=== PATIENT | female | born 1965 | race Caucasian/White ===

== ENCOUNTER 2021-07-22 15:36 | Inpatient (IN) ==
[2021-07-22] MEDS ORDERED: SODIUM CHLORIDE 0.9% 250 ML IV PRN ×2 (16:23→17:15)
--- NOTE | 2021-07-22 16:54 | XRay Report ---
SINGLE VIEW CHEST CLINICAL HISTORY: Dyspnea. FINDINGS: An AP, portable, upright chest radiograph is obtained. No prior studies are available for c omparison at the time of dictation. A hiatal hernia is noted. The cardiomediastinal silhouette is unr emarkable. Mild atelectasis is noted at the lung bases. The lungs and pleural spaces are otherwise cl ear. No pneumothorax is seen. The bony thorax is grossly intact. IMPRESSION: 1. No active disease in the chest. 2. Hiatal hernia. ACT 112: Negative or not required by law. Electronically signed by: Giorgi Peoples M.D. 07/22/2021 4:52 PM
[2021-07-22 17:13] LABS: Hematocrit (blood only) 26.1 % (37-47); Hemoglobin 6.4 g/dL (12.0-16.0); Mean Corpuscular Hemoglobin 15.5 pg (25-34); Mean Corpuscular Hgb Conc 24.5 g/dL (32-36); Mean Corpuscular Volume 63.2 fL (80-100); Mean Platelet Volume 8.6 fL (7.4-10.4); Platelet Count 750 K/uL (130-400); RDW Coefficient of Variation 19.6 % (11.5-14.5); RDW Standard Deviation 45.5 fL (36.4-46.3); Red Blood Count 4.13 M/uL (4.2-5.4); White Blood Count 14.71 K/uL (4.8-10.8)
[2021-07-22 17:15] LABS: Basophils # (auto) 0.04 K/uL (0-0.2); Basophils % (auto) 0.3 %; Eosinophils # (auto) 0.37 K/uL (0-0.5); Eosinophils % (auto) 2.5 %; Hypochromasia Present; Immature Granulocytes # (auto) 0.06 K/uL (0.00-0.02); Immature Granulocytes % (auto) 0.4 %; Lymphocytes # (auto) 2.53 K/uL (1.2-3.4); Lymphocytes % (auto) 17.2 %; Microcytosis Present; Monocytes # (auto) 1.08 K/uL (0.11-0.59); Monocytes % (auto) 7.3 %; Neutrophils # (auto) 10.63 K/uL (1.4-6.5); Neutrophils % (auto) 72.3 %; Polychromasia 1+
[2021-07-22] MEDS ORDERED: OPTIRAY 320 100ml IV ONE (18:20)
--- NOTE | 2021-07-22 18:38 | CT Scan Report ---
CT abd pelvis IV con only CLINICAL HISTORY: anemia, elevated WBC TECHNIQUE: Helical axial images of the abdomen and pelvis were obtained and displayed. Automated dose lowering techniques and/or adjustment according to patient size were utilized for this exam. This e xam was performed with intravenous contrast. COMPARISON: None available at the time of this dictation. FINDINGS: Lower chest: No acute abnormality Liver: Unremarkable. No focal lesions are seen. Gallbladder and biliary tree: No calcified gallstones. Normal caliber wall. No intra- or extrahepatic biliary ductal dilation. Pancreas: Unremarkable, no focal lesions. Spleen: Splenule is incidentally noted. Adrenals: Unremarkable. Kidneys and ureters: Unremarkable. Bladder: Unremarkable. Reproductive organs: Unremarkable. Bowel: A hiatal hernia is seen. The appendix is normal. Lymph nodes Retroperitoneal: Unremarkable. Mesenteric: Unremarkable. Pelvic: Unremarkable. Peritoneum: Normal Vessels: Unremarkable. Abdominal wall: Unremarkable. Bones: Degenerative changes in the visualized spine. IMPRESSION: No acute abnormalities. ACT 112: Negative or not required by law. Electronically signed by: Lavelle Christianson M.D. 07/22/2021 6:36 PM
--- NOTE | 2021-07-22 19:40 | History & Physical Report ---
Date of Service July 22, 2021 Assessment & Plan (1) Anemia: Plan: Severe symptomatic microcytic anemia, no acute/observed blood loss No signs of active bleeding, postmenopausal, no GI bleeding with negative occult blood in ER. No family history of colorectal cancer, although has not had colorectal cancer screening. No family history of bleeding/clotting diathesis, leukemia. Her presentation with no clear bleeding but sudden profound anemia with thrombocytosis and leukocytosis and no signs of infection is potentially concerning for bone marrow origin, her work with [employer] also has risk for heavy metal fume exposure. Colorectal cancer would be common, however less likely due to lack of family history and negative occult blood screening although would still pursue work-up for this. Leukocytosis to 14.71 Last hemoglobin baseline 11.9 06/20/2019 Hemoglobin on admission 6.0, 1 unit for transfusion completed in ER. 2 additional units for transfusion pending completion, H&H pending for 30 minutes after completion Repeat hemoglobin 6.4 after 1 unit MCV severely microcytic, 63 Platelet count 750 No transaminitis, alk phos 141 Covid negative -CXR: No active disease in the chest. Hiatal hernia. - CT-Ab: No acute abnormalities. EKG: Normal sinus rhythm, no territorial ST changes, no T wave inversions - Iron studies pending (Fe, Ferritin, Transferrin, TSAT) + B12/Folate Reticulocyte count pending TSH with reflex pending - Thromboytosis + leukocytosis without signs of infection, peripheral smear pending No known history of thalassemia, if above work-up negative can consider hemoglobin analysis No clear drug-induced or infectious etiology. No family history of G6PD deficiency, no clear ingestion of hemolytic trigger (fav beans/8- aminoquinolines/new meds) No nailbed/skin/eye findings or other evidence of copper/lead/zinc/arsenic toxicity. Lead level pending. Consider additional levels above unremarkable patient family known to Dr. Montalvo, consult placed (2) Anxiety: Plan: Anxiety - Lexapro 10mg daily (3) GERD (gastroesophageal reflux disease): Plan: GERD - Omeprazole 20mg SOLUTION COORDINATOR converted to protonix 40mg daily Plan: DVT PPx: SCDs, defer pharmacoppx in the setting of acute anemia Diet: Regular Disposition: Med Tele CODE STATUS: Full Code History of Present Illness Chief Complaint: Symptomatic Anemia Primary Care Provider: DO Meryl Stevensonara Eldridge is a 55-year-old female with a past medical history of anxiety and GERD who presents with fatigue and dyspnea on exertion, and who was found to be severely anemic on routine outpt blodo work. Was at her PCP this mronign for a routine checkup. Had had some increased fatigue and hadn't had labs in a while so had routine work including a CBC and was found to be anemic. Was directed to go to the ER when CBC showed severe anemia. No signs of GIB. FOB negative. Meryl reports she had noticed she has been more fatigued in general and 'a little winded' over the last few months whic has been gradually worsening. No syncope/presyncope. No chest pain, no chest pressure. No recent illness. No fevers, chills, cough, nausea, vomiting, diarrhea, or constipation. No recent sick contacts. Her went to the [employer] and had a cold, but Meryl has overall felt well with no sx. was negative for COVID. Menopausal. Last period many years ago. No night sweats, chills. Sometimes warm and hot after showers and needs air/fan, otherwise no feverish fe eling. No bony pain, muscle aches, etc. Up to date on mammograms, normal to date. Work: [employer] for [employer]. Uses flux at work no problems with fumes. Diet: Balanced, eats chicken and some red hamburger meat. Gets regular iron in the diet. Drinks almond milk with her cereal, no other mild use. FHX: No fx of anemia. No bleeding diathesis/clotting problems. PGM with 'heart issues, in 50s'. Father's sisters had breast cancer, unsure o BRCA status. No fhx of colorectal cancer, no hx of colorectal cancer screening. Medical History: Reviewed Medications: Reviewed Surgical History: Reviewed Allergies: Reviewed Social History: No tobacco use, no etoh, no recreational drug use, no medical marijuana. Code Status: Full Code Allergies Allergy/AdvReac Type Severity Reaction Status Date / Time No Known Allergies Allergy Verified 07/22/21 07:56 Home Medications Medication Instructions Recorded Confirmed Type omeprazole magnesium 20 mg 20 mg PO DAILY 05/29/19 07/22/21 History tablet,delayed release escitalopram oxalate 10 mg tablet 10 mg PO DAILY #90 tab 04/28/21 07/22/21 Rx Past Med/Surg History Medical History Anxiety GERD (gastroesophageal reflux disease) Surgical History Status post section Status post tubal ligation Family History Mother Hypertension Father Hypertension Dementia Aunt Breast cancer Paternal Aunt Grandmother (Paternal) Myocardial infarction Coronary heart disease Denies family history of Ovarian cancer Prostate cancer Colorectal cancer Social History Smoking Status: Never smoker Second Hand Exposure: No; Hx Alcohol Use: No Hx Substance Use: No Preferred Language: Lao Communication Ability: Effective Visual Impairment: No Limitations Hearing Ability: Normal Beliefs That Will Affect Care: None marital status: Current Living Situation: Spouse current occupational status: employed 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 NAD. Cooperative. HEENT: Atraumatic, normocephalic. Pallor is present. Visual acuity intact, hearing intact. Extraocular movements intact without nystagmus. Pupils equal and reactive to light. Pulm: CTAB A&P. -wheezes, -rales, -rhonchi. Symmetrical chest rise. No increase work of breathing. No respiratory distress. Cardiac: RRR, -mrg. Radial pulses intact and symmetrical. Abdominal: Nontender, nondistended, soft. BS present. Extremities: Warm, dry. Video Producer strength, ankle dorsiflexion/plantar flexion, hip flexion 5/5 and symmetrical. PT pulse and radial pulses intact and symmetrical. Results & Data Results & Data ([facility]) Vital Signs (Past 12 Hours) Vital Signs Temp Pulse Pulse Resp BP BP Pulse Ox 07/22/21 18:00 79 18 152/98 H 100 07/22/21 17:04 98 07/22/21 16:48 93 H 17 135/79 98 07/22/21 16:15 36.4 C L 86 20 146/80 H 100 PG Care Time/CCT Total # of Minutes Spent Total Time Spent with Patient: Total time spent is greater than 50% in coordination of care (as documented) at patient's floor/unit and/or counseling patient: Coding Level of Care Code 11443 Initial Inpt Care Lvl 3 Diagnoses Anxiety F41.9 GERD (gastroesophageal reflux disease) K21.9 Anemia D64.9
--- NOTE | 2021-07-23 00:48 | Emergency Department Note ---
Impression & Plan Anemia, Transfusion of blood during current hospitalisation ED Provider Note CHIEF COMPLAINT: OCAMPO, fatigue, abnl blood work HISTORY OF PRESENT ILLNESS: This 55-year-old female with complaints of dyspnea on exertion patient presents to the emergency department, fatigue and abnormal blood work. Patient states she was at her annual physical exam with Dr. Henley today. She was notified this evening that her blood work was very abnormal with a low red blood cell count. Patient states she wakes up very early to go to work and felt as though her exhaustion by the end of her workday was related to her sleep schedule. She states she also "huffs and puffs" which she has lately been contributing to weight gain. Patient denies any pain in the abdomen, blood in her stools, fevers, vomiting or dysuria/hematuria. REVIEW OF SYSTEMS: A review of systems was performed with positives and pe rtinent negatives listed in the history of present illness. 10 systems were reviewed and are otherwise negative. ALLERGIES: see below MEDICATIONS: see below PMH: see below SOCIAL HISTORY: see below DDx: Infection, dehydration, metabolic abnormality, hypo/hyperglycemia, electrolyte disturbance, anemia, hypoxia, cardiac sources, intracerebral event, toxicologic, neurologic, as well as other pathologies. PHYSICAL EXAM: Vital signs reviewed. General: Well-appearing 55 yo female, in no significant distress. HEENT: No scleral icterus, PERRLA, neck supple. Atraumatic. Cardiovascular: Regular rate and rhythm, no extra sounds. Pulmonary: Clear to auscultation bilaterally, normal work of breathing. Abdomen: Soft, obese, nontender, nondistended, positive bowel sounds. Musculoskeletal: Atraumatic, no peripheral edema. Neurologic: Patient awake alert and oriented x 3 Rectal: Guaiac negative brown stool. Normal external rectal mucosa. Skin: Warm, dry, no rash EMERGENCY DEPARTMENT COURSE/MDM: This patient was evaluated and appeared to be in no significant distress. IV access was obtained and laboratory work was drawn. Patient was hydrated with normal saline solution. Laboratory work from earlier in the day was repeated and the hemoglobin of 6 persists. Patient was typed and crossed for 2 units of PRBCs. She was consented for blood transfusion. Stool is guaiac negative on exam. She remained stable however the etiology of her anemia is unclear she does not admit to any history of blood loss. CT imaging of the abdomen pelvis was performed due to an elevated WBC which is new from earlier today. The study is negative for acute pathology. Patient is currently receiving PRBCs and was discussed with the hospitalist service who will evaluate the patient for admission and further management. MONITORING: An order for cardiac monitoring was placed and the patient is noted to be in a NSR at 78 beats per minute. RADIOLOGY: see below EKG: NSR at 86 bpm, nonspecific ST segments lateral leads. No PVC, no PAC, normal QT interval, normal axis. I have personally spent 45 minutes of critical care time in the direct management of this patient. This was a life threatening event. This 45 minutes is in excess of all separately billable procedures. DISPOSITION: admit Past Med/Surg History Medical History (Updated 07/23/21 @ 00:48 by Zeinab Gallegos MD) Anxiety GERD (gastroesophageal reflux disease) Surgical History Status post section Status post tubal ligation Family History Mother Hypertension Father Hypertension Dementia Aunt Breast cancer Paternal Aunt Grandmother (Paternal) Myocardial infarction Coronary heart disease Denies family history of Ovarian cancer Prostate cancer Colorectal cancer Social History Smoking Status: Never smoker Second Hand Exposure: No; Hx Alcohol Use: Yes Alcohol type: wine Hx Substance Use: No Preferred Language: Comoran Communication Ability: Effective Visual Impairment: No Limitations Hearing Ability: Normal Administrative Support Assistant Required: No Beliefs That Will Affect Care: None marital status: Current Living Situation: Spouse current occupational status: employed 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[employer] Other Information That Helps Us Care for You: No Feels Safe at Home: Yes Safety Concerns: Feels Safe At This Time Childhood Exposure to Second-Hand Smoke: No caffeine: Yes (Coffee x 1-2 per day Tea 1-2 per day.) during the past year weight has: remained stable Dental Care, Regularly: No Physical Activity Frequency: Does not Exercise Seatbelt Use: always Sunscreen Use: Yes Assistive Devices: Denture - Upper and Glasses Assistive Devices Comment: partial upper dentures Allergies Allergies Allergy/AdvReac Type Severity Reaction Status Date / Time No Known Allergies Allergy Verified 07/22/21 07:56 Home Meds Home Medications Medication Instructions Recorded Confirmed omeprazole magnesium 20 mg 20 mg PO DAILY 05/29/19 07/22/21 tablet,delayed release Previous Rx's Medication Instructions Recorded escitalopram oxalate 10 mg tablet 10 mg PO DAILY #90 tab 04/28/21 Results & Data (ED) Vital Signs Vital Signs - 24 hr 07/22/21 16:15 07/22/21 16:48 07/22/21 17:00 Temperature 36.4 C L Temperature Source Temporal Artery Scan Pulse Rate 86 86 77 Pulse Rate [Apical] 93 H Pulse Rate from SpO2 Sensor 87 Pulse Rhythm Pulse Rhythm [Apical] Pulse Strength Pulse Strength [Apical] Respiratory Rate 20 13 15 Respiratory Effort / Characteristics Non-Labored Spontaneous Respiratory Depth Normal Respiratory Pattern Regular Blood Pressure 146/80 H Blood Pressure [Right Arm] 135/79 Blood Pressure Mean 102 Blood Pressure Mean [Right Arm] 97 Blood Pressure Position Sitting Blood Pressure Position [Right Arm] Semi-fowlers Pulse Oximetry 100 98 Oxygen Delivery Method Room Air Room Air Oxygen Flow Rate Sepsis Recent Fever Within 48 Hours No Sepsis New/Unexplained Change in Mental Status No Sepsis Action Taken by Nursing No Action Required 07/22/21 17:04 07/22/21 17:15 07/22/21 17:30 Temperature Temperature Source Pulse Rate 78 83 Pulse Rate [Apical] Pulse Rate from SpO2 Sensor 79 81 Pulse Rhythm Pulse Rhythm [Apical] Pulse Strength Pulse Strength [Apical] Respiratory Rate 17 20 Respiratory Effort / Characteristics Respiratory Depth Respiratory Pattern Blood Pressure Blood Pressure [Right Arm] Blood Pressure Mean Blood Pressure Mean [Right Arm] Blood Pressure Position Blood Pressure Position [Right Arm] Pulse Oximetry 98 99 100 Oxygen Delivery Method Room Air Oxygen Flow Rate 0 Sepsis Recent Fever Within 48 Hours Sepsis New/Unexplained Change in Mental Status Sepsis Action Taken by Nursing 07/22/21 17:45 07/22/21 18:00 07/22/21 18:32 Temperature Temperature Source Pulse Rate 77 81 89 Pulse Rate [Apical] 79 Pulse Rate from SpO2 Sensor 79 81 88 Pulse Rhythm Pulse Rhythm [Apical] Regular Pulse Strength Pulse Strength [Apical] Normal Respiratory Rate 18 16 23 Respiratory Effort / Characteristics Non-Labored Spontaneous Respiratory Depth Normal Respiratory Pattern Blood Pressure 143/90 H Blood Pressure [Right Arm] 152/98 H Blood Pressure Mean 107 Blood Pressure Mean [Right Arm] 116 Blood Pressure Position Blood Pressure Position [Right Arm] Semi-fowlers Pulse Oximetry 100 100 99 Oxygen Delivery Method Room Air Oxygen Flow Rate Sepsis Recent Fever Within 48 Hours Sepsis New/Unexplained Change in Mental Status Sepsis Action Taken by Nursing 07/22/21 18:45 07/22/21 19:00 07/22/21 19:15 Temperature Temperature Source Pulse Rate 88 83 82 Pulse Rate [Apical] Pulse Rate from SpO2 Sensor 89 82 82 Pulse Rhythm Pulse Rhythm [Apical] Pulse Strength Pulse Strength [Apical] Respiratory Rate 28 H 24 17 Respiratory Effort / Characteristics Respiratory Depth Respiratory Pattern Blood Pressure 145/85 H Blood Pressure [Right Arm] Blood Pressure Mean 105 Blood Pressure Mean [Right Arm] Blood Pressure Position Blood Pressure Position [Right Arm] Pulse Oximetry 98 99 100 Oxygen Delivery Method Oxygen Flow Rate Sepsis Recent Fever Within 48 Hours Sepsis New/Unexplained Change in Mental Status Sepsis Action Taken by Nursing 07/22/21 19:30 07/22/21 19:45 07/22/21 20:00 Temperature Temperature Source Pulse Rate 86 85 93 H Pulse Rate [Apical] Pulse Rate from SpO2 Sensor 83 85 93 H Pulse Rhythm Pulse Rhythm [Apical] Pulse Strength Pulse Strength [Apical] Respiratory Rate 17 23 17 Respiratory Effort / Characteristics Respiratory Depth Respiratory Pattern Blood Pressure Blood Pressure [Right Arm] Blood Pressure Mean Blood Pressure Mean [Right Arm] Blood Pressure Position Blood Pressure Position [Right Arm] Pulse Oximetry 100 100 99 Oxygen Delivery Method Oxygen Flow Rate Sepsis Recent Fever Within 48 Hours Sepsis New/Unexplained Change in Mental Status Sepsis Action Taken by Nursing 07/22/21 20:07 07/22/21 20:10 07/22/21 20:15 Temperature Temperature Source Pulse Rate 87 93 H Pulse Rate [Apical] 90 Pulse Rate from SpO2 Sensor 91 H Pulse Rhythm Regular Pulse Rhythm [Apical] Regular Pulse Strength Normal Pulse Strength [Apical] Normal Respiratory Rate 18 18 21 Respiratory Effort / Characteristics Non-Labored Spontaneous Respiratory Depth Normal Respiratory Pattern Regular Blood Pressure 146/90 H Blood Pressure [Right Arm] 146/90 H Blood Pressure Mean 108 Blood Pressure Mean [Right Arm] 108 Blood Pressure Position Semi-fowlers Blood Pressure Position [Right Arm] Semi-fowlers Pulse Oximetry 100 98 99 Oxygen Delivery Method Room Air Oxygen Flow Rate Sepsis Recent Fever Within 48 Hours Sepsis New/Unexplained Change in Mental Status Sepsis Action Taken by [facility] Medications Current Medication List: was personally reviewed by me Laboratory Data Attestation: I reviewed the patient's lab results. Result diagrams: 07/22/21 16:43 Lab Results 07/22/21 07/22/21 07/22/21 Range/Units 16:43 16:43 16:45 WBC 14.71 H (4.8-10.8) K/uL RBC 4.13 L (4.2-5.4) M/uL Hgb 6.4 L* (12.0-16.0) g/dL Hct 26.1 L (37-47) % MCV 63.2 L (80-100) fL MCH 15.5 L (25-34) pg MCHC 24.5 L (32-36) g/dL RDW Std Deviation 45.5 (36.4-46.3) fL RDW Coeff of Yane 19.6 H (11.5-14.5) % Plt Count 750 H (130-400) K/uL MPV 8.6 (7.4-10.4) fL Immature Gran % (Auto) 0.4 % Neut % (Auto) 72.3 % Lymph % (Auto) 17.2 % Mckean % (Auto) 7.3 % Eos % (Auto) 2.5 % Baso % (Auto) 0.3 % Neut # (Auto) 10.63 H (1.4-6.5) K/uL Lymph # (Auto) 2.53 (1.2-3.4) K/uL Mckean # (Auto) 1.08 H (0.11-0.59) K/uL Eos # (Auto) 0.37 (0-0.5) K/uL Baso # (Auto) 0.04 (0-0.2) K/uL Immature Gran # (Auto) 0.06 H (0.00-0.02) K/uL Polychromasia 1+ Hypochromasia Present Microcytosis Present COVID-19 Eval Order Covid19 at [facility] SARS-CoV-2 (PCR) (Negative) Blood Type O Positive Blood Type Recheck Antibody Screen NEGATIVE Crossmatch See Detail 07/22/21 07/22/21 Range/Units 16:45 18:38 WBC (4.8-10.8) K/uL RBC (4.2-5.4) M/uL Hgb (12.0-16.0) g/dL Hct (37-47) % MCV (80-100) fL MCH (25-34) pg MCHC (32-36) g/dL RDW Std Deviation (36.4-46.3) fL RDW Coeff of Yane (11.5-14.5) % Plt Count (130-400) K/uL MPV (7.4-10.4) fL Immature Gran % (Auto) % Neut % (Auto) % Lymph % (Auto) % Mckean % (Auto) % Eos % (Auto) % Baso % (Auto) % Neut # (Auto) (1.4-6.5) K/uL Lymph # (Auto) (1.2-3.4) K/uL Mckean # (Auto) (0.11-0.59) K/uL Eos # (Auto) (0-0.5) K/uL Baso # (Auto) (0-0.2) K/uL Immature Gran # (Auto) (0.00-0.02) K/uL Polychromasia Hypochromasia Microcytosis COVID-19 Eval Order SARS-CoV-2 (PCR) NEGATIVE (Negative) Blood Type Blood Type Recheck O Positive Antibody Screen Crossmatch Administered Medications Discontinued Medications Ioversol (Optiray 320 100ml) 94 ml IV ONCE ONE Stop: 07/22/21 18:21 Last Admin: 07/22/21 18:20 Dose: 94 ml Documented by: [id number] Imaging Data Radiologist's Impression: Chest X-Ray 07/22/21 16:23 SINGLE VIEW CHEST CLINICAL HISTORY: Dyspnea. FINDINGS: An AP, portable, upright chest radiograph is obtained. No prior studies are available for comparison at the time of dictation. A hiatal hernia is noted. The cardiomediastinal silhouette is unremarkable. Mild atelectasis is noted at the lung bases. The lungs and pleural spaces are otherwise clear. No pneumothorax is seen. The bony thorax is grossly intact. IMPRESSION: 1. No active disease in the chest. 2. Hiatal hernia. ACT 112: Negative or not required by law. Electronically signed by: Giorgi Peoples M.D. 07/22/2021 4:52 PM Abdomen/Pelvis CT 07/22/21 17:36 CT abd pelvis IV con only CLINICAL HISTORY: anemia, elevated WBC TECHNIQUE: Helical axial images of the abdomen and pelvis were obtained and displayed. Automated dose lowering techniques and/or adjustment according to patient size were utilized for this exam. This exam was performed with intravenous contrast. COMPARISON: None available at the time of this dictation. FINDINGS: Lower chest: No acute abnormality Liver: Unremarkable. No focal lesions are seen. Gallbladder and biliary tree: No calcified gallstones. Normal caliber wall. No intra- or extrahepatic biliary ductal dilation. Pancreas: Unremarkable, no focal lesions. Spleen: Splenule is incidentally noted. Adrenals: Unremarkable. Kidneys and ureters: Unremarkable. Bladder: Unremarkable. Reproductive organs: Unremarkable. Bowel: A hiatal hernia is seen. The appendix is normal. Lymph nodes Retroperitoneal: Unremarkable. Mesenteric: Unremarkable. Pelvic: Unremarkable. Peritoneum: Normal Vessels: Unremarkable. Abdominal wall: Unremarkable. Bones: Degenerative changes in the visualized spine. IMPRESSION: No acute abnormalities. ACT 112: Negative or not required by law. Electronically signed by: Lavelle Christianson M.D. 07/22/2021 6:36 PM Blood Pressure Blood Pressure Findings: Normal blood pressure Blood Pressure Disposition: did not require urgent referral Discharge Plan Visit Data Chief Complaint: Shortness of Breath/Dyspnea Stated Complaint: AB-NORMAL LAB HEMOGLOBIN 6, FATIGUE, SOB ED Provider: Zeinab Gallegos Discharge Problem: Anemia, Transfusion of blood during current hospitalisation Patient Disposition: Admitted As Inpatient Discharge Instructions Interventions: ED Discharge Assessment Last Done: 07/22/21 21:42
[2021-07-23 05:48] LABS: Hematocrit (blood only) 31.7 % (37-47); Hemoglobin 9.1 g/dL (12.0-16.0); Mean Corpuscular Hgb Conc 28.7 g/dL (32-36); Mean Corpuscular Volume 69.7 fL (80-100); Mean Platelet Volume 8.4 fL (7.4-10.4); Nucleated RBC # (auto) 0.03 K/uL (0-0); Nucleated RBC % (auto) 0.3 %; Platelet Count 531 K/uL (130-400); RDW Coefficient of Variation 24.2 % (11.5-14.5); Red Blood Count 4.55 M/uL (4.2-5.4)
[2021-07-23 06:12] LABS: BUN Creatinine Ratio 9.1 (10-20); Calcium 8.2 mg/dl (8.5-10.1); Creatinine Clr Calc Pharmacy 92.9 ml/min; Est GFR (African American) 107.7 ml/min; Potassium 4.1 mmol/L (3.5-5.1)
[2021-07-23 06:21] LABS: Albumin Globulin Ratio 0.7 (0.9-2); Bilirubin,Total 0.5 mg/dl (0.2-1); Ferritin 1.7 ng/ml (8-388); Globulin 4.4 gm/dl (2.5-4.0); Thyroid Stimulating Hormone 1.15 uIu/ml (0.300-4.500); Total Protein 7.4 gm/dl (6.4-8.2)
[2021-07-23 06:40] LABS: Basophils # (auto) 0.03 K/uL (0-0.2); Basophils % (auto) 0.3 %; Eosinophils # (auto) 0.26 K/uL (0-0.5); Eosinophils % (auto) 2.5 %; Hypochromasia Present; Immature Granulocytes # (auto) 0.03 K/uL (0.00-0.02); Immature Granulocytes % (auto) 0.3 %; Lymphocytes # (auto) 1.86 K/uL (1.2-3.4); Lymphocytes % (auto) 18.2 %; Monocytes # (auto) 0.87 K/uL (0.11-0.59); Monocytes % (auto) 8.5 %; Neutrophils # (auto) 7.15 K/uL (1.4-6.5); Neutrophils % (auto) 70.2 %; Polychromasia 1+; Reticulocyte % 1.2 % (0.5-2.0); Reticulocytes # 0.05 10^6/uL (0.02-0.10)
[2021-07-23 07:10] LABS: Folate (Folic Acid) 9.1 ng/ml (>5.38)
[2021-07-23 07:45] VITALS: BP 133/84; TEMP 98.6; O2SAT 97
[2021-07-23] MEDS ORDERED: PANTOprazole 40 MG TAB PO SCH (09:00)
[2021-07-23] MEDS ORDERED: ESCITALOPRAM OXALATE 10 MG TAB PO SCH (09:00)
--- NOTE | 2021-07-23 11:12 | Electrocardiogram Report ---
Test Reason : Blood Pressure : / mmHG Vent. Rate : 086 BPM Atrial Rate : 086 BPM P-R Int : 154 ms QRS Dur : 086 ms QT Int : 384 ms P-R-T Axes : 039 025 018 degrees QTc Int : 459 ms Poor data quality, interpretation may be adversely affected Normal sinus rhythm Nonspecific ST abnormality Abnormal ECG No previous ECGs available Confirmed by Isai Collins ([id number]) on 07/23/2021 11:12:29 AM Referred By: Lisa Henley Confirmed By:Partha Collins
[2021-07-23] MEDS ORDERED: IRON SUCROSE 200 MG in 0.9 % SODIUM CHLORIDE 100 ML IV ONE (12:45)
--- NOTE | 2021-07-23 14:56 | Discharge Summary ---
Date of Service July 23, 2021 Admission HPI Per Admitting Provider Karen Chavez is a 55-year-old female with a past medical history of anxiety and GERD who presents with fatigue and dyspnea on exertion, and who was found to be severely anemic on routine outpt blodo work. Was at her PCP this mronign for a routine checkup. Had had some increased fatigue and hadn't had labs in a while so had routine work including a CBC and was found to be anemic. Was directed to go to the ER when CBC showed severe anemia. No signs of GIB. FOB negative. Meryl reports she had noticed she has been more fatigued in general and 'a little winded' over the last few months whic has been gradually worsening. No syncope/presyncope. No chest pain, no chest pressure. No recent illness. No fevers, chills, cough, nausea, vomiting, diarrhea, or constipation. No recent sick contacts. Her went to the [employer] and had a cold, but Meryl has overall felt well with no sx. was negative for COVID. Menopausal. Last period many years ago. No night sweats, chills. Sometimes warm and hot after showers and needs air/fan, otherwise no feverish feeling. No bony pain, muscle aches, etc. Up to date on mammograms, normal to date. Work: [employer] under a [employer] for [employer] Uses flux at work no problems with fumes. Diet: Balanced, eats chicken and some red hamburger meat. Gets regular iron in the diet. Drinks almond milk with her cereal, no other mild use. FHX: No fx of anemia. No bleeding diathesis/clotting problems. PGM with 'heart issues, in 50s'. Father's sisters had breast cancer, unsure o BRCA status. No fhx of colorectal cancer, no hx of colorectal cancer screening. Medical History: Reviewed Medications: Reviewed Surgical History: Reviewed Allergies: Reviewed Social History: No tobacco use, no etoh, no recreational drug use, no medical marijuana. Code Status: Full Code Principal Diagnosis Microcytic, hypochromic anemia Severe iron deficiency Discharge Exam General: well developed, well nourished, no acute distress, comfortable Neck: supple, trachea midline, normal thyroid Lungs: clear to auscultation bilaterally, normal respiratory effort, no acc essory muscle use, no distress Heart: regular S1 and S2, no murmur, peripheral pulses normal, capillary refill normal, no edema Abdomen: soft, NT, ND, + BS, no hepatomegaly, normal to percussion Extremities: normal in appearance, no cyanosis, no petechiae, strength is 5/5 bilaterally Neuro: awake, cooperative, moves all extremities, no focal motor deficits, CN II-XII intact, sensation in extremities intact, normal speech Skin: warm, dry, no rash, normal turgor Psych: Awake, alert oriented x 3, euthymic affect Discharge Data Allergies Allergy/AdvReac Type Severity Reaction Status Date / Time No Known Allergies Allergy Verified 07/22/21 07:56 Consultations 07/22/21 18:57 ED Decision to Admit Stat Ordered Studies 07/22/21 17:36 CT abd pelvis IV con only Stat Hospital Course (1) Anemia: Severe symptomatic microcytic anemia, no acute/observed blood loss cells are hypochromic as well most obvious etiology is profound iron deficiency, ferritin is 1.7 and iron is 22 patient transfused 3 units of PRBC for Hemoglobin of 6.0, hemoglobin came up appropriate, >9.0 gave a dose of Venofer 200mg IV, tolerated well discussed with Dr. Colvin, she agreed with the plan to discharge to home and follow up in hematology clinic, cancelled inpatient consultation plan: will discharge to home since Hemoglobin is > 9 and BP stable set up for 4 more doses of Venofer 200mg IV in the MTU will follow up with Dr. Montalvo, hematology would recommend referral to GI for endoscopy work up to look for chronic blood loss place on Ferrous sulfate 325mg BID as well discussed with patient, she eats a well rounded diet, no restrictions, adequate iron intake is unlikely her issue (2) Anxiety: Anxiety - Lexapro 10mg daily (3) GERD (gastroesophageal reflux disease): GERD - Omeprazole 20mg CHIEF INVESTIGATOR converted to protonix 40mg daily (4) Iron deficiency: see above d/c to home Total Time Total Time Spent Total Time Spent (In Minutes): 36 minutes Total Time Includes: Examination of the Patient, Discharge Planning, Medication Reconciliation and Communication With Other Providers Discharge Plan Discharge Items Patient Disposition: Home - Self-Care Reason For Visit: SYMPTOMATIC ANEMIA Discharge Diagnosis: Microcytic anemia Severe iron deficiency Condition on Discharge: Good Goals: complete Venofer, 4 treatments needed follow up with Dr. Montalvo next week consider GI referral for endoscopy work up as cause of deficiency Activity: Resume your previous activity Driving/Machine Use: No limitations Weightbearing: Full weightbearing Non-emergency contact: Primary Care Provider Call non-emergency contact if: you have any medication questions Follow-up/Referrals: Lisa Henley DO [Primary Care Provider] - 08/09/21 9:20 am () Russel Montalvo DO [Physician] - (PLEASE CALL DR. MONTALVO'S OFFICE TO SCHEDULE A FOLLOW-UP DISCHARGE APPOINTMENT WITHIN 7-10 DAYS.) Diet: Regular Addtl Attending Provider Instructions: Medications: - FERROUS SULFATE: 325mg twice a day, can cause constipation, so be sure to stay well hydrated, take fiber supplement and/or stool softener if needed - VENOFER: intravenous iron supplement, will get 4 additional treatments this week Severe anemia, hemoglobin 6.0, most likely due to profound iron deficiency, ferritin level only 1.7 red blood cells very small and hypochromic consistent with iron deficiency doubt the deficiency is due to poor intake as you eat a well balanced diet best way to replete iron stores is 5 doses of Venofer will also have you take oral supplements please follow up with Dr. Montalvo this week, could be referred to gastroenterology for endoscopic work up to find a reason for low iron Pending Studies at Discharge: No Stand-Alone Forms: My [facility] [employer], Smoking Cessation Medications and DC Order Prescriptions: New ferrous sulfate 325 mg (65 mg iron) tablet 325 mg PO BID Qty: 60 RF: 3 Continued escitalopram oxalate 20 mg tablet 20 mg PO DAILY Qty: 90 RF: 1 omeprazole magnesium 20 mg tablet,delayed release (DR/EC) 20 mg PO DAILY RF: 0 Discharge Orders: Discharge Order (Routine); Ordered 07/23/21 Ordered By: Lavelle Mcdonnell Admission Data Admit Date/Time: 07/22/21 20:20 Attending Provider: Lavelle Mcdonnell Admit Provider: Isaiah Gonzalez Primary Care Provider: Lisa Henley Other Providers: Isaiah Gonzalez Other Interventions: Discharge Summary Assessment (RN) Last Done: 07/23/21 15:02 Coding Level of Care Code D/C DAY MANAGEMENT >30 MINS Diagnoses Anemia D64.9 Anemia type: unspecified type Anxiety F41.9 GERD (gastroesophageal reflux disease) K21.9 Iron deficiency E61.1
[2021-07-23 15:03] VITALS: PULSE 92
[2021-07-27 19:45] LABS: IgA Serum 340 mg/dL (47-310); Tis Trans IgA <1.0 U/mL
== END 2021-07-23 15:35 | disposition home or self-care (01) | DRG 812 ==
LOC: ED 15:36 → 2W 20:20 → SUATTDRO 20:20 → 2W 21:42

== ENCOUNTER 2021-11-11 17:49 | Inpatient (IN) ==
[2021-11-11 19:46] LABS: Basophils # (auto) 0.04 K/uL (0-0.2); Basophils % (auto) 0.4 %; Eosinophils % (auto) 2.9 %; Hematocrit (blood only) 30.3 % (37-47); Hemoglobin 9.4 g/dL (12.0-16.0); Immature Granulocytes # (auto) 0.04 K/uL (0.00-0.02); Immature Granulocytes % (auto) 0.4 %; Lymphocytes # (auto) 2.06 K/uL (1.2-3.4); Lymphocytes % (auto) 19.8 %; Mean Corpuscular Hemoglobin 27.7 pg (25-34); Mean Corpuscular Volume 89.4 fL (80-100); Mean Platelet Volume 8.8 fL (7.4-10.4); Monocytes # (auto) 0.82 K/uL (0.11-0.59); Monocytes % (auto) 7.9 %; Neutrophils # (auto) 7.16 K/uL (1.4-6.5); Neutrophils % (auto) 68.6 %; Platelet Count 424 K/uL (130-400); RDW Coefficient of Variation 13.5 % (11.5-14.5); Red Blood Count 3.39 M/uL (4.2-5.4); White Blood Count 10.42 K/uL (4.8-10.8)
[2021-11-11 20:03] LABS: Partial Thromboplastin Time 26.5 Seconds (21.0-31.0); Prothrombin Time 9.8 Seconds (9.0-12.0)
[2021-11-11 20:04] LABS: Albumin Globulin Ratio 1.2 (0.9-2); Albumin Level 3.6 gm/dl (3.4-5.0); BUN Creatinine Ratio 24.6 (10-20); Bilirubin,Total 0.2 mg/dl (0.2-1.0); Calcium 8.4 mg/dl (8.5-10.1); Creatinine Clr Calc Pharmacy 97.6 ml/min; Est GFR (Non-African American) 96.6 ml/min; Globulin 2.9 gm/dl (2.5-4.0); Potassium 4.2 mmol/L (3.5-5.1); Total Protein 6.5 gm/dl (6.0-8.3)
--- NOTE | 2021-11-11 20:49 | History & Physical Report ---
Date of Service November 11, 2021 Assessment & Plan (1) Hematochezia: Plan: -EGD and colonoscopy in July as part of an anemia work-up. EGD was normal. Colonoscopy showed localized inflammation, mild severity characterized by aphthous ulcerations and terminal ileum. Biopsies taken. 6 mm polyp in the cecum was removed. Nonbleeding internal hemorrhoids seen. Diverticulosis noted in sigmoid colon. A capsule endoscopy was going to be ordered for today, however cancelled due to patient being en route to the ED. -Tagged RBC scan yesterday was unrevealing. -Hgb 9.4 today in ED, down from 11.6 yesterday. -Will continue to trend H/H Q4 x3. -Type and screen obtained, will obtain consent. -Npo for now, LRs @ 80 cc/hr, on PPI. (2) Anemia: Plan: -As above. (3) Anxiety: Plan: -Continue escitalopram 20 mg PO daily. (4) GERD (gastroesophageal reflux disease): Plan: -Continue PPI. Plan: -SCDs ordered, holding Lovenox for acute bleed. -Obs status -Conditional code, does not want intubation. History of Present Illness Chief Complaint: rectal bleeding Primary Care Provider: Lisa Henley DO Patient is a 55-year-old female with past medical history of GERD, anxiety, and anemia who presents to ED with rectal bleeding since 4 PM today. States she is passing large quantities of dark red blood with some clots visualized. Is othereise asymptomatic, no fever/chills, chest pain, palpitations, shortness of rbeath, dizziness, weakness, syncope, abdominal pain, nausea, vomiting, hematuria, constipation, or diarrhea. Patient has had intermittent rectal bleeding for several months now with extensive evaluation, see below for details. Patient initially began work-up for iron deficiency anemia and June, when she was found to be severely anemic on routine outpatient blood work. She was admitted on 07/22 and received 3 units of PRBC for Hemoglobin of 6.0, hemoglobin came up appropriate, >9.0, gave a dose of Venofer 200mg IV, tolerated well. She was discharged the following day with set up for 4 more doses of Venofer 200mg IV and ferrous sulfate 325mg BID as well, with follow up with Dr. Montalvo, hematology. Patient recently had a tagged RBC scan yesterday which was unrevealing, as well as EGD and colonoscopy in July as part of an anemia work-up. EGD was normal. Colonoscopy showed localized inflammation, mild severity characterized by aphthous ulcerations and terminal ileum. Biopsies taken. 6 mm polyp in the cecum was removed. Nonbleeding internal hemorrhoids seen. Diverticulosis noted in sigmoid colon. A capsule endoscopy was going to be ordered for today, however cancelled due to patient being en route to the ED. Hgb 9.4 today, down from 11.6 from outpatient labs yesterday. Heme-occult positive. All other labs wnl. Type and screeb obtained, will obtain consent for transfusion and monitor H/H. Allergies Allergy/AdvReac Type Severity Reaction Status Date / Time No Known Allergies Allergy Verified 11/11/21 20:26 Home Medications Medication Instructions Recorded Confirmed Type omeprazole magnesium 20 mg 20 mg PO QA 05/29/19 11/11/21 History tablet,delayed release escitalopram oxalate 20 mg tablet 20 mg PO QAM 08/12/21 11/11/21 History Past Med/Surg History Medical History Anxiety GERD (gastroesophageal reflux disease) Iron deficiency anemia Surgical History Status post section Status post tubal ligation Family History Mother Hypertension Father Hypertension Dementia Aunt Breast cancer Paternal Aunt Grandmother (Paternal) Myocardial infarction Coronary heart disease Denies family history of Ovarian cancer Prostate cancer Colorectal cancer Social History Smoking Status: Never smoker Tobacco Type: Cigarettes Second Hand Exposure: No; Hx Alcohol Use: No Hx Substance Use: No Preferred Language: Mongolian Communication Ability: Effective Visual Impairment: No Limitations Hearing Ability: Normal Stone Polisher Machine Required: No Beliefs That Will Affect Care: None marital status: Current Living Situation: Spouse current occupational status: employed 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[employer] How many Children do You have: 1 Feels Safe at Home: Yes Safety Concerns: Feels Safe At This Time Childhood Exposure to Second-Hand Smoke: No caffeine: Yes (Coffee x 1-2 per day Tea 1-2 per day.) during the past year weight has: remained stable Dental Care, Regularly: No Physical Activity Frequency: Does not Exercise Seatbelt Use: always Sunscreen Use: Yes Assistive Devices: Glasses Review of Systems Review of Systems: Constitutional: No fever, sweats or chills Eyes: No diplopia, no worsening or blurred vision ENT: normal hearing, no trouble swallowing Respiratory: No cough, sputum, dyspnea at rest or on exertion Cardiovascular: No chest pain, tightness or palpitations Abdomen: Frequent rectal bleeding with and without BMs; No pain, nausea, vomiting, diarrhea or constipation Musculoskeletal: No joint pain, calf pain, swelling Neurologic: No weakness, numbness/tingling, or balance problems Psychiatric: No anxiety or depression Skin: No rash or itch Physical Exam Physical Exam: General: awake, alert, no apparent distress Head: Normocephalic, atraumatic ENT: PERRL, EOMI, no pharyngeal exudate, mucous membranes moist Chest: Clear to auscultation, on room air, no adventitious breath sounds Cardiac: Regular rate and rhythm, no murmur, no JVD, normal peripheral pulses, good capillary refill Abdominal: heme occult positive; NABS x 4 quadrants, soft, nontender to pa lpation, no rebound, guarding or tenderness Extremities: Normal inspection, no peripheral edema or erythema, calfs nontender to palpation Psych: Normal mood and affect Neuro: AAO x 3, strength intact bilaterally and rated 5/5, no motor deficits, speech is clear, no peripheral sensory deficits Skin: no rash or erythema Results & Data Results & Data ([facility]) Vital Signs (Past 12 Hours) Vital Signs Temp Pulse Resp BP Pulse Ox 11/11/21 19:40 85 20 157/99 H 95 11/11/21 18:01 36.7 C 96 H 18 132/76 97 Laboratory Results Abnormal lab results 11/11/21 11/11/21 11/11/21 Range/Units 19:35 19:35 20:50 RBC 3.39 L (4.2-5.4) M/uL Hgb 9.4 L (12.0-16.0) g/dL Hct 30.3 L (37-47) % MCHC 31.0 L (32-36) g/dL Plt Count 424 H (130-400) K/uL Neut # (Auto) 7.16 H (1.4-6.5) K/uL Terry # (Auto) 0.82 H (0.11-0.59) K/uL Immature Gran # (Auto) 0.04 H (0.00-0.02) K/uL Chloride 108 H (98-107) mmol/L BUN/Creatinine Ratio 24.6 H (10-20) Glucose 102 H (70-99(Fasting)) mg/dl Calcium 8.4 L (8.5-10.1) mg/dl AST 12 L (13-39) U/L POC Stool Occult Blood Positive A (Negative) Code Status & VTE Plan Code Status Conditional code, patient would like all life saving measures with the exception of intubation. VTE Prophylaxis Plan VTE Prophylaxis will be ordered: Yes Supervising Physician Co-Signing Physician Notes Attending addendum: I have physically seen this patient, have supervised the ANABELLA's activities, and agree with the H&P unless as otherwise noted. Assessment and Plan: Hematochezia- Negative EGD and colonoscopy 08/14 Negative tagged red cell scan yesterday Hemoglobin has dropped from 11.6-9.4 from yesterday to today H&H every 4 hours x3 Type and screen NPO except essential medications LR at 80 mils per hour Protonix 40 mg IV daily Consult gastroenterology Remaining orders and notations as noted PG Care Time/CCT Total # of Minutes Spent Total Time Spent with Patient: Total time spent is greater than 50% in coordination of care (as documented) at patient's floor/unit and/or counseling patient: Coding Level of Care Code INT OBSERVATION CARE 50M LVL 2 Diagnoses Hematochezia K92.1 Anemia D64.9 Anemia type: unspecified type Anxiety F41.9 GERD (gastroesophageal reflux disease) K21.9 (1) Anemia Anemia type: unspecified type Qualified Code(s): D64.9 - Anemia, unspecified
[2021-11-11] MEDS ORDERED: POLYETHYLENE (MIRALAX) 17 GM PACK PO PRN (22:33)
[2021-11-11] MEDS ORDERED: ONDANSETRON INJ 2 MG/ML 2 ML VIAL IV PRN (22:33)
[2021-11-11] MEDS: LACTATED RINGER'S 1,000 ML IV SCH (22:40)
[2021-11-11 23:32] LABS: Hematocrit (blood only) 27.2 % (37-47); Hemoglobin 8.6 g/dL (12.0-16.0)
--- NOTE | 2021-11-11 23:56 | Emergency Department Note ---
History of Present Illness General Chief complaint: Rectal Bleed Stated complaint: RECTAL BLEED Time Seen by Provider: 11/11/21 18:58 History of Present Illness 55-year-old female, history of iron deficiency anemia, and prior history of blood transfusions, who presents to the emergency department with complaint of ongoing rectal bleeding. The patient reports that she was evaluated in the emergency department yesterday for this condition. The patient follows with Dr. Montalvo, solar consultant/oncologist, who ordered and performed a nuclear bleeding scan yesterday that was normal. With persistent bleeding, the patient was instructed to return to the emergency department. She reports maroon-colored blood per r ectum. She also reports abdominal cramping. Patient does report some weakness. She denies nausea, chest pain, shortness of breath or notable decreased urine output. The patient denies any significant pain on my exam. Home Medications Medication Instructions Recorded Confirmed Type omeprazole magnesium 20 mg 20 mg PO QAM 05/29/19 11/11/21 History tablet,delayed release escitalopram oxalate 20 mg tablet 20 mg PO QAM 08/12/21 11/11/21 History Allergies Allergy/AdvReac Type Severity Reaction Status Date / Time No Known Allergies Allergy Verified 11/11/21 20:26 Past Med/Surg History Medical History Anxiety GERD (gastroesophageal reflux disease) Iron deficiency anemia Surgical History Status post section Status post tubal ligation Family History Mother Hypertension Father Hypertension Dementia Aunt Breast cancer Paternal Aunt Grandmother (Paternal) Myocardial infarction Coronary heart disease Denies family history of Ovarian cancer Prostate cancer Colorectal cancer Social History Smoking Status: Never smoker Tobacco Type: Cigarettes Second Hand Exposure: No; Hx Alcohol Use: No Hx Substance Use: No Preferred Language: Tunisian Communication Ability: Effective Visual Impairment: No Limitations Hearing Ability: Normal 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 Beliefs That Will Affect Care: None marital status: Current Living Situation: Spouse current occupational status: employed 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UND[employer] How many Children do You have: 1 Feels Safe at Home: Yes Safety Concerns: Feels Safe At This Time Childhood Exposure to Second-Hand Smoke: No caffeine: Yes (Coffee x 1-2 per day Tea 1-2 per day.) during the past year weight has: remained stable Dental Care, Regularly: No Physical Activity Frequency: Does not Exercise Seatbelt Use: always Sunscreen Use: Yes Assistive Devices: Glasses Review of Systems 10 system review was performed and was negative except for pertinent positives and negatives as indicated in history of present illness Physical Exam Vital Signs Vital Signs - 24 hr 11/11/21 18:01 11/11/21 19:40 11/11/21 20:00 Temperature 36.7 C Temperature Source Temporal Artery Scan Pulse Rate 96 H 85 82 Pulse Rate from SpO2 Sensor 84 82 Respiratory Rate 18 20 13 Blood Pressure 132/76 157/99 H 110/80 Blood Pressure Mean 94 118 90 Blood Pressure Position Sitting Pulse Oximetry 97 95 97 Oxygen Delivery Method Room Air Sepsis Recent Fever Within 48 Hours No Sepsis New/Unexplained Change in Mental Status No Sepsis Action Taken by Nursing No Action Required 11/11/21 20:30 11/11/21 21:00 Temperature Temperature Source Pulse Rate 92 H 124 H Pulse Rate from SpO2 Sensor 91 H 129 H Respiratory Rate 14 27 H Blood Pressure 123/87 Blood Pressure Mean 99 Blood Pressure Position Pulse Oximetry 96 97 Oxygen Delivery Method Sepsis Recent Fever Within 48 Hours Sepsis New/Unexplained Change in Mental Status Sepsis Action Taken by Nursing CONSTITUTIONAL: Obese female in no obvious distress. Alert and oriented x3. HEENT: No scleral icterus or conjunctival injection/pallor. NECK: Full active range of motion without discomfort. LYMPHATICS: No cervical chain adenopathy. RESPIRATORY: Clear to auscultation bilaterally with no wheezing, crackles, rhonchi or stridor. CARDIOVASCULAR: Regular rate and rhythm with no murmurs, rubs or gallops. GASTROINTESTINAL: Bowel sounds present in all quadrants. No focal abdominal tenderness to palpation. Negative CVA tenderness. No obvious hepatosplenomegaly. MUSCULOSKELETAL: Full range of motion of all joints without discomfort. INTEGUMENTARY: No rash or other significant dermatologic conditions noted. HEMATOLOGIC: No ecchymosis or petechiae. PSYCHIATRIC: Positive affect. NEUROLOGIC: No focal neurologic deficits noted. Course Course Patient history and physical exam were performed. Nurses notes were reviewed. Vital signs were reviewed from triage, and were normal. I also reviewed documentation from the patient's visit yesterday, noting a hemoglobin level of 11.6. Remaining lab work was otherwise unremarkable. It is noted that the patient did have additional lab work ordered yesterday by Dr. Montalvo, showing normal iron, unsaturated IBC and ferritin levels. The nuclear GI bleed scan was reviewed without evidence for acute bleeding etiologies. I also reviewed prior GI notes, showing that the patient underwent colonoscopy on 08/17/2021, finding a benign cecal polyp and internal hemorrhoids. IV access was established, and labs were drawn. The patient refused any clair lgesics. Patient did pass blood into a stool collection hat, which was heme positive. Review of labs shows a decrease in hemoglobin to 9.4 (a 2.2 g/dL drop). Platelet count was slightly elevated at 424, with left shift and 4% bands. Coagulation studies, creatinine and LFTs are otherwise normal. A type and screen was ordered with O-positive blood type. Findings were discussed with the patient, as well as Dr. Doe, ED attending physician. The case was also further discussed with Dr. De La Garza, [facility] hospitalist, for further admission and management. COVID-19 test was negative. Please see hospitalist and GI dictations for further treatment and final disposition. Administered Medications Lactated Ringer's (Lr) 1,000 mls @ 80 mls/hr IV .[id number] WILLA Stop: 12/11/21 22:32 Last Admin: 11/11/21 22:40 Dose: 80 mls/hr Documented by: [id number] Medical Decision Making Medical Records Attestation: I reviewed the patient's medical records. Home Medications Current Medication List: was personally reviewed by me Laboratory Data Attestation: I reviewed the patient's lab results. Result diagrams: 11/11/21 23:22 11/11/21 19:35 Lab Results 11/11/21 11/11/21 11/11/21 Range/Units 19:35 19:35 19:35 WBC 10.42 (4.8-10.8) K/uL RBC 3.39 L (4.2-5.4) M/uL Hgb 9.4 L (12.0-16.0) g/dL Hct 30.3 L (37-47) % MCV 89.4 (80-100) fL MCH 27.7 (25-34) pg MCHC 31.0 L (32-36) g/dL RDW Std Deviation 44.0 (36.4-46.3) fL RDW Coeff of Yane 13.5 (11.5-14.5) % Plt Count 424 H (130-400) K/uL MPV 8.8 (7.4-10.4) fL Immature Gran % (Auto) 0.4 % Neut % (Auto) 68.6 % Lymph % (Auto) 19.8 % Glenn % (Auto) 7.9 % Eos % (Auto) 2.9 % Baso % (Auto) 0.4 % Neut # (Auto) 7.16 H (1.4-6.5) K/uL Lymph # (Auto) 2.06 (1.2-3.4) K/uL Glenn # (Auto) 0.82 H (0.11-0.59) K/uL Eos # (Auto) 0.30 (0-0.5) K/uL Baso # (Auto) 0.04 (0-0.2) K/uL Immature Gran # (Auto) 0.04 H (0.00-0.02) K/uL PT 9.8 (9.0-12.0) Seconds INR 1.0 (0.9-1.1) APTT 26.5 (21.0-31.0) Seconds PTT Ratio 1.0 Sodium (136-145) mmol/L Potassium (3.5-5.1) mmol/L Chloride (98-107) mmol/L Carbon Dioxide (21-32) mmol/L Anion Gap (3-11) BUN (6-23) mg/dl Creatinine (0.6-1.2) mg/dl Est Cr Clr Drug Dosing ml/min Est GFR ( Amer) ml/min Est GFR (Non-Af Amer) ml/min BUN/Creatinine Ratio (10-20) Glucose (70-99(Fasting)) mg/dl Calcium (8.5-10.1) mg/dl Total Bilirubin (0.2-1.0) mg/dl AST (13-39) U/L ALT (7-52) U/L Alkaline Phosphatase (34-104) U/L Total Protein (6.0-8.3) gm/dl Albumin (3.4-5.0) gm/dl Globulin (2.5-4.0) gm/dl Albumin/Globulin Ratio (0.9-2) POC Stool Occult Blood (Negative) SARS-CoV-2, RNA, NAAT (NEGATIVE) Blood Type O Positive Antibody Screen NEGATIVE 11/11/21 11/11/21 11/11/21 Range/Units 19:35 20:50 20:50 WBC (4.8-10.8) K/uL RBC (4.2-5.4) M/uL Hgb (12.0-16.0) g/dL Hct (37-47) % MCV (80-100) fL MCH (25-34) pg MCHC (32-36) g/dL RDW Std Deviation (36.4-46.3) fL RDW Coeff of Yane (11.5-14.5) % Plt Count (130-400) K/uL MPV (7.4-10.4) fL Immature Gran % (Auto) % Neut % (Auto) % Lymph % (Auto) % Glenn % (Auto) % Eos % (Auto) % Baso % (Auto) % Neut # (Auto) (1.4-6.5) K/uL Lymph # (Auto) (1.2-3.4) K/uL Glenn # (Auto) (0.11-0.59) K/uL Eos # (Auto) (0-0.5) K/uL Baso # (Auto) (0-0.2) K/uL Immature Gran # (Auto) (0.00-0.02) K/uL PT (9.0-12.0) Seconds INR (0.9-1.1) APTT (21.0-31.0) Seconds PTT Ratio Sodium 139 (136-145) mmol/L Potassium 4.2 (3.5-5.1) mmol/L Chloride 108 H (98-107) mmol/L Carbon Dioxide 26 (21-32) mmol/L Anion Gap 5 (3-11) BUN 17 (6-23) mg/dl Creatinine 0.69 (0.6-1.2) mg/dl Est Cr Clr Drug Dosing 97.6 ml/min Est GFR ( Amer) 112.0 ml/min Est GFR (Non-Af Amer) 96.6 ml/min BUN/Creatinine Ratio 24.6 H (10-20) Glucose 102 H (70-99(Fasting)) mg/dl Calcium 8.4 L (8.5-10.1) mg/dl Total Bilirubin 0.2 (0.2-1.0) mg/dl AST 12 L (13-39) U/L ALT 12 (7-52) U/L Alkaline Phosphatase 92 (34-104) U/L Total Protein 6.5 (6.0-8.3) gm/dl Albumin 3.6 (3.4-5.0) gm/dl Globulin 2.9 (2.5-4.0) gm/dl Albumin/Globulin Ratio 1.2 (0.9-2) POC Stool Occult Blood Positive A (Negative) SARS-CoV-2, RNA, NAAT NEGATIVE (NEGATIVE) Blood Type Antibody Screen Blood Pressure Blood Pressure Findings: Normal blood pressure MDM Narrative Patient presents to the emergency department with a lower GI bleed and significantly decreased hemoglobin level over a less than 24-hour period. Physical exam and laboratory studies are not suggestive of any end organ damage. She has a normal creatinine. LFTs are also normal. Patient is not febrile, hypotensive, tachycardic or hypoxic. The patient will likely need prompt colonoscopy studies. Blood transfusions also may need to be performed for further stabilization of her hemoglobin levels. Impression & Plan Acute lower GI bleeding, History of iron deficiency anemia, History of blood transfusion Discharge Plan Visit Data Chief Complaint: Rectal Bleed Stated Complaint: RECTAL BLEED ED Provider: Sathya Doe ED Midlevel Provider: John Trejo Discharge Problem: Acute lower GI bleeding, History of iron deficiency anemia, History of blood t ransfusion Patient Disposition: Admitted As Inpatient Discharge Instructions Interventions: ED Discharge Assessment Last Done: 11/11/21 22:25
[2021-11-12 03:56] LABS: Hematocrit (blood only) 26.4 % (37-47); Hemoglobin 8.1 g/dL (12.0-16.0)
[2021-11-12] MEDS ORDERED: SODIUM CHLORIDE 0.9% 250 ML IV PRN ×2 (04:13→12:36)
[2021-11-12 06:02] LABS: Hematocrit (blood only) 25.6 % (37-47)
--- NOTE | 2021-11-12 07:45 | Communication Note ---
Date of Service: November 12, 2021 Slight decrease in Hb. BP stable. Obtained transfusion consent and 2 units held. Consider active blood loss.
[2021-11-12] MEDS: ESCITALOPRAM OXALATE 20 MG TAB PO SCH (08:12)
[2021-11-12] MEDS: PANTOprazole 40 MG TAB PO SCH (08:12)
--- NOTE | 2021-11-12 09:38 | Electrocardiogram Report ---
Test Reason : Blood Pressure : / mmHG Vent. Rate : 089 BPM Atrial Rate : 089 BPM P-R Int : 144 ms QRS Dur : 084 ms QT Int : 374 ms P-R-T Axes : 028 003 019 degrees QTc Int : 455 ms Normal sinus rhythm Normal ECG When compared with ECG of 22-JUL-2021 16:31, No significant change was found Confirmed by Thai Munoz ([id number]) on 11/12/2021 9:38:17 AM Referred By: REFERRED SELF Confirmed By:Thai Munoz
[2021-11-12] MEDS: LACTATED RINGER'S 1,000 ML IV SCH ×2 (10:49→22:00)
[2021-11-12] MEDS ORDERED: IRON SUCROSE 300 MG in SODIUM CHLORIDE 0.9% 250 ML IV SCH (12:00)
[2021-11-12 12:32] LABS: Hematocrit (blood only) 24.6 % (37-47); Hemoglobin 7.6 g/dL (12.0-16.0); Mean Corpuscular Hgb Conc 30.9 g/dL (32-36); Mean Corpuscular Volume 90.8 fL (80-100); Mean Platelet Volume 8.5 fL (7.4-10.4); Platelet Count 375 K/uL (130-400); RDW Coefficient of Variation 13.8 % (11.5-14.5); RDW Standard Deviation 45.6 fL (36.4-46.3); Red Blood Count 2.71 M/uL (4.2-5.4); White Blood Count 8.39 K/uL (4.8-10.8)
--- NOTE | 2021-11-12 13:32 | Hospitalist Progress Note ---
Date of Service November 12, 2021 Assessment & Plan (1) Hematochezia: Plan: - Acute hematochezia noted over the last 12 hours; has been following with GI and hematology for lower GI bleeding and iron deficiency anemia. - She completed Venofer IV x 3 doses in ; had an adequate response to treatment. - EGD completed 08/17/21, had a small hiatal hernia noted. Colonoscopy 08/17/21 with ileitis, one 6 mm polyp in the cecum and diverticulosis noted. Pathology w as neg for malignancy, did show inflammation. - Hgb level 9.4 last evening (baseline >11 gm/dL); trended H/H levels closely, Hgb decreased to 7.6 gm/dL at 12 PM this afternoon. - Recommend 2 units pRBC this afternoon for transfusional support. - Of note, GI RBC scan completed 11/10 was neg for active GI bleeding. CT AP neg for acute abnormalities. - Capsule endoscopy was scheduled to be completed on 11/11 but patient missed appt due to acute hematochezia. - GI consulted, recommend EGD/Colonoscopy on 11/13; patient can have CLD today, will be NPO after midnight. LR at 80 cc/hr. - She will receive GoLytely prep starting at 18:00. - Monitor CBC at 9 PM followed by AM lab. (2) Anemia: Plan: - Acute iron deficiency due to GI bleeding. - Received IV Venofer, completed 3 doses in . - Ferritin has trended down yet again, 68 in Jul to 16 on admission. - She was scheduled to receive weekly Venofer x 3 doses, starting on 11/14, at [facility]. - Will administer Venofer IV x 3 doses as inpatient, starting on 11/13 (can give more doses as outpt if necessary). (3) Anxiety: Plan: - Continue escitalopram 20 mg PO daily. (4) GERD (gastroesophageal reflux disease): Plan: - Continue PPI. Plan: -SCDs ordered, hold Lovenox for acute bleed. Dispo: Discharge pending resolution of LGIB. Admission and Anticipated Discharge Date Admission Date: November 11, 2021 Supervising Physician Co-Signing Physician Notes Attending Attestation - Chart reviewed in detail, care plan d/w PERRY Clark. I agree w/ the dao components of her documentation. EGD/colonoscopy in am tomorrow for severe Fe def anemia & rectal bleeding. Ken Ferrari MD Subjective Mrs. Chavez is a very pleasant 55 y/o female with acute lower GI bleeding and iron deficiency; she completed IV Venofer x 3 doses in . EGD completed 08/17/21, had a small hiatal hernia noted. Colonoscopy 08/17/21 with ileitis, one 6 mm polyp in the cecum and diverticulosis noted. Pathology was neg for malignancy, did show inflammation. She was admitted to [facility] on 11/11/21 for acute hematochezia. Hgb level 9.4 gm/dL last evening, was 7.6 gm/dL this afternoon. Iron level 38, Ferritin 16 (prev 68.8 in Jul following IV Venofer infusions). Of note, she did undergo GI RBC scan on 11/10, was negative for active GI bleeding. The patient had a capsule endoscopy scheduled on 11/11 but missed her appt due to hospitalization. Most recent episode of hematochezia occurred around midnight last evening. Review of Systems Review of Systems: Constitutional: +Fatigue; Negative for weight loss, night sweats, or fever Eyes: Negative for event change of vision ENT: Negative for epistaxis, nasal discharge, sore throat, or deafness Cardiovascular: Negative for anginal type chest pain, palpitations, dizziness, diaphoresis Respiratory: Negative for new shortness of breath,hemoptysis, or purulent cough Gastrointestinal: +Hematochezia;Negative for diarrhea, hematemesis, melena, nausea, vomiting Integumentary (skin): Negative for rash or jaundice discoloration Genitourinary: Negative for urinary frequency, hematuria, or dysuria Neurological: Negative for weakness, seizure activity, headache, or dizziness Lymphatic/Hematologic: Negative for petechiae, bleeding or new adenopathy Musculoskeletal: Negative for new joint or back pain Allergic/Immunologic: Negative for unusual rash or pruritis Physical Exam Physical Exam: Constitutional: Vitals are stable Respiratory: Lung sounds were generally clear bilaterally. Cardiovascular: Heart was RRR without significant murmur, gallops or rubs. Gastrointestinal: No palpable hepatic or splenomegaly. The abdomen was soft with normal bowel sounds. Lymphatic system: There was no palpable peripheral lymphadenopathy. Musculoskeletal System: The musculoskeletal system seemed concordant with age. Skin: The skin was negative for jaundice. Extremities: Negative for edema or erythema Results & Data Results & Data ([facility]) Vital Signs (Past 12 Hours) Vital Signs Temp Pulse Pulse Resp BP BP Pulse Ox 11/12/21 13:12 36.8 C 77 16 118/74 11/12/21 08:41 36.8 C 76 16 105/63 96 Laboratory Results 11/12/21 11/12/21 11/12/21 Range/Units 12:12 05:30 03:30 WBC 8.39 (4.8-10.8) K/uL RBC 2.71 L (4.2-5.4) M/uL Hgb 7.6 L 8.0 L 8.1 L (12.0-16.0) g/dL Hct 24.6 L 25.6 L 26.4 L (37-47) % MCV 90.8 (80-100) fL MCH 28.0 (25-34) pg MCHC 30.9 L (32-36) g/dL RDW Std Deviation 45.6 (36.4-46.3) fL RDW Coeff of Yane 13.8 (11.5-14.5) % Plt Count 375 (130-400) K/uL MPV 8.5 (7.4-10.4) fL Immature Gran % (Auto) % Neut % (Auto) % Lymph % (Auto) % [facility] [place] % (Auto) % Eos % (Auto) % Baso % (Auto) % Neut # (Auto) (1.4-6.5) K/uL Lymph # (Auto) (1.2-3.4) K/uL [facility] # (Auto) (0.11-0.59) K/uL Eos # (Auto) (0-0.5) K/uL Baso # (Auto) (0-0.2) K/uL Immature Gran # (Auto) (0.00-0.02) K/uL PT (9.0-12.0) Seconds INR (0.9-1.1) APTT (21.0-31.0) Seconds PTT Ratio Sodium (136-145) mmol/L Potassium (3.5-5.1) mmol/L Chloride (98-107) mmol/L Carbon Dioxide (21-32) mmol/L Anion Gap (3-11) BUN (6-23) mg/dl Creatinine (0.6-1.2) mg/dl Est Cr Clr Drug Dosing ml/min Est GFR ( Amer) ml/min Est GFR (Non-Af Amer) ml/min BUN/Creatinine Ratio (10-20) Glucose (70-99(Fasting)) mg/dl Calcium (8.5-10.1) mg/dl Total Bilirubin (0.2-1.0) mg/dl AST (13-39) U/L ALT (7-52) U/L Alkaline Phosphatase (34-104) U/L Total Protein (6.0-8.3) gm/dl Albumin (3.4-5.0) gm/dl Globulin (2.5-4.0) gm/dl Albumin/Globulin Ratio (0.9-2) POC Stool Occult Blood (Negative) SARS-CoV-2, RNA, NAAT (NEGATIVE) Blood Type Antibody Screen Crossmatch 11/11/21 11/11/21 11/11/21 Range/Units 23:22 20:50 20:50 WBC (4.8-10.8) K/uL RBC (4.2-5.4) M/uL Hgb 8.6 L (12.0-16.0) g/dL Hct 27.2 L (37-47) % MCV (80-100) fL MCH (25-34) pg MCHC (32-36) g/dL RDW Std Deviation (36.4-46.3) fL RDW Coeff of Yane (11.5-14.5) % Plt Count (130-400) K/uL MPV (7.4-10.4) fL Immature Gran % (Auto) % Neut % (Auto) % Lymph % (Auto) % [facility] [place] % (Auto) % Eos % (Auto) % Baso % (Auto) % Neut # (Auto) (1.4-6.5) K/uL Lymph # (Auto) (1.2-3.4) K/uL [facility] # (Auto) (0.11-0.59) K/uL Eos # (Auto) (0-0.5) K/uL Baso # (Auto) (0-0.2) K/uL Immature Gran # (Auto) (0.00-0.02) K/uL PT (9.0-12.0) Seconds INR (0.9-1.1) APTT (21.0-31.0) Seconds PTT Ratio Sodium (136-145) mmol/L Potassium (3.5-5.1) mmol/L Chloride (98-107) mmol/L Carbon Dioxide (21-32) mmol/L Anion Gap (3-11) BUN (6-23) mg/dl Creatinine (0.6-1.2) mg/dl Est Cr Clr Drug Dosing ml/min Est GFR ( Amer) ml/min Est GFR (Non-Af Amer) ml/min BUN/Creatinine Ratio (10-20) Glucose (70-99(Fasting)) mg/dl Calcium (8.5-10.1) mg/dl Total Bilirubin (0.2-1.0) mg/dl AST (13-39) U/L ALT (7-52) U/L Alkaline Phosphatase (34-104) U/L Total Protein (6.0-8.3) gm/dl Albumin (3.4-5.0) gm/dl Globulin (2.5-4.0) gm/dl Albumin/Globulin Ratio (0.9-2) POC Stool Occult Blood Positive A (Negative) SARS-CoV-2, RNA, NAAT NEGATIVE (NEGATIVE) Blood Type Antibody Screen Crossmatch 11/11/21 11/11/21 11/11/21 Range/Units 19:35 19:35 19:35 WBC 10.42 (4.8-10.8) K/uL RBC 3.39 L (4.2-5.4) M/uL Hgb 9.4 L (12.0-16.0) g/dL Hct 30.3 L (37-47) % MCV 89.4 (80-100) fL MCH 27.7 (25-34) pg MCHC 31.0 L (32-36) g/dL RDW Std Deviation 44.0 (36.4-46.3) fL RDW Coeff of Yane 13.5 (11.5-14.5) % Plt Count 424 H (130-400) K/uL MPV 8.8 (7.4-10.4) fL Immature Gran % (Auto) 0.4 % Neut % (Auto) 68.6 % Lymph % (Auto) 19.8 % [facility] % (Auto) 7.9 % Eos % (Auto) 2.9 % Baso % (Auto) 0.4 % Neut # (Auto) 7.16 H (1.4-6.5) K/uL Lymph # (Auto) 2.06 (1.2-3.4) K/uL [facility] # (Auto) 0.82 H (0.11-0.59) K/uL Eos # (Auto) 0.30 (0-0.5) K/uL Baso # (Auto) 0.04 (0-0.2) K/uL Immature Gran # (Auto) 0.04 H (0.00-0.02) K/uL PT 9.8 (9.0-12.0) Seconds INR 1.0 (0.9-1.1) APTT 26.5 (21.0-31.0) Seconds PTT Ratio 1.0 Sodium 139 (136-145) mmol/L Potassium 4.2 (3.5-5.1) mmol/L Chloride 108 H (98-107) mmol/L Carbon Dioxide 26 (21-32) mmol/L Anion Gap 5 (3-11) BUN 17 (6-23) mg/dl Creatinine 0.69 (0.6-1.2) mg/dl Est Cr Clr Drug Dosing 97.6 ml/min Est GFR ( Amer) 112.0 ml/min Est GFR (Non-Af Amer) 96.6 ml/min BUN/Creatinine Ratio 24.6 H (10-20) Glucose 102 H (70-99(Fasting)) mg/dl Calcium 8.4 L (8.5-10.1) mg/dl Total Bilirubin 0.2 (0.2-1.0) mg/dl AST 12 L (13-39) U/L ALT 12 (7-52) U/L Alkaline Phosphatase 92 (34-104) U/L Total Protein 6.5 (6.0-8.3) gm/dl Albumin 3.6 (3.4-5.0) gm/dl Globulin 2.9 (2.5-4.0) gm/dl Albumin/Globulin Ratio 1.2 (0.9-2) POC Stool Occult Blood (Negative) SARS-CoV-2, RNA, NAAT (NEGATIVE) Blood Type Antibody Screen Crossmatch 11/11/21 Range/Units 19:35 WBC (4.8-10.8) K/uL RBC (4.2-5.4) M/uL Hgb (12.0-16.0) g/dL Hct (37-47) % MCV (80-100) fL MCH (25-34) pg MCHC (32-36) g/dL RDW Std Deviation (36.4-46.3) fL RDW Coeff of Yane (11.5-14.5) % Plt Count (130-400) K/uL MPV (7.4-10.4) fL Immature Gran % (Auto) % Neut % (Auto) % Lymph % (Auto) % [facility] % (Auto) % Eos % (Auto) % Baso % (Auto) % Neut # (Auto) (1.4-6.5) K/uL Lymph # (Auto) (1.2-3.4) K/uL [facility] # (Auto) (0.11-0.59) K/uL Eos # (Auto) (0-0.5) K/uL Baso # (Auto) (0-0.2) K/uL Immature Gran # (Auto) (0.00-0.02) K/uL PT (9.0-12.0) Seconds INR (0.9-1.1) APTT (21.0-31.0) Seconds PTT Ratio Sodium (136-145) mmol/L Potassium (3.5-5.1) mmol/L Chloride (98-107) mmol/L Carbon Dioxide (21-32) mmol/L Anion Gap (3-11) BUN (6-23) mg/dl Creatinine (0.6-1.2) mg/dl Est Cr Clr Drug Dosing ml/min Est GFR ( Amer) ml/min Est GFR (Non-Af Amer) ml/min BUN/Creatinine Ratio (10-20) Glucose (70-99(Fasting)) mg/dl Calcium (8.5-10.1) mg/dl Total Bilirubin (0.2-1.0) mg/dl AST (13-39) U/L ALT (7-52) U/L Alkaline Phosphatase (34-104) U/L Total Protein (6.0-8.3) gm/dl Albumin (3.4-5.0) gm/dl Globulin (2.5-4.0) gm/dl Albumin/Globulin Ratio (0.9-2) POC Stool Occult Blood (Negative) SARS-CoV-2, RNA, NAAT (NEGATIVE) Blood Type O Positive Antibody Screen NEGATIVE Crossmatch See Detail PG Care Time/CCT Total # of Minutes Spent Total Time Spent with Patient: Total time spent is greater than 50% in coordination of care (as documented) at patient's floor/unit and/or counseling patient: [place] [address] Subseq Hosp Care Lvl 2 Patient Type Established Diagnoses Hematochezia K92.1 Anemia D64.9 Anemia type: unspecified type Anxiety F41.9 GERD (gastroesophageal reflux disease) K21.9 (1) Anemia Anemia type: unspecified type Qualified Code(s): D64.9 - Anemia, unspecified
--- NOTE | 2021-11-12 13:46 | Gastrointestinal Consultation ---
Date of Consultation November 12, 2021 Assessment & Plan (1) Hematochezia: (2) Anemia: (3) Iron deficiency: possible diverticular bleeding vs. AVM or other etiology. recs: --trend H/H, transfuse prn --clear liquid diet today, NPO post midnight except for prep --push enteroscopy and colonoscopy tomorrow to further evaluate --prep with golytely 4L starting at 6 pm tonight -supportive care, IVFs Thank you for allowing me to participate in the care of this patient History of Present Illness Attending Physician: Ken Ferrari History of Present Illness 55-year-old female with past medical history of GERD, anxiety, and anemia who presented with hematochezia. She has been having this for a few days now with ongoing clots and hematochezia. [facility] for iron defiiciency anemia and previous EGD and colonoscopy workup were unremarkable, diverticulosis and few apthous ulcers were found in the TI but no active bleeding in 07/2021. RBC scan done this week was normal. plan was for outpatient capsule endoscopy but she continued to have bleeding and is now admitted. last hematochezia was this past midnight. No painful bowel movements, nausea, vomiting. hgb is noted to be 7.6 today, normal BUN. labs reviewed, VSS. Allergies Allergy/AdvReac Type Severity Reaction Status Date / Time No Known Allergies Allergy Verified 11/11/21 20:26 Home Medications Medication Instructions Recorded Confirmed Type omeprazole magnesium 20 mg 20 mg PO [facility] 05/29/19 11/11/21 History tablet,delayed release escitalopram oxalate 20 mg tablet 20 mg PO [facility] 08/12/21 11/11/21 History Patient History Medical History Anxiety GERD (gastroesophageal reflux disease) Iron deficiency anemia Surgical History Status post section Status post tubal ligation Family History Mother Hypertension Father Hypertension Dementia Aunt Breast cancer Paternal Aunt Grandmother (Paternal) Myocardial infarction Coronary heart disease Denies family history of Ovarian cancer Prostate cancer Colorectal cancer Social History Smoking Status: Never smoker Tobacco Type: Cigarettes Second Hand Exposure: No; Hx Alcohol Use: No Hx Substance Use: No Preferred Language: Libyan Communication Ability: Effective Visual Impairment: No Limitations Hearing Ability: Normal 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 Beliefs That Will Affect Care: None marital status: Current Living Situation: Spouse current occupational status: employed 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[employer] How many Children do You have: 1 Feels Safe at Home: Yes Safety Concerns: Feels Safe At This Time Childhood Exposure to Second-Hand Smoke: No caffeine: Yes (Coffee x 1-2 per day Tea 1-2 per day.) during the past year weight has: remained stable Dental Care, Regularly: No Physical Activity Frequency: Does not Exercise Seatbelt Use: always Sunscreen Use: Yes Assistive Devices: Glasses Review of Systems Constitutional: no fever, no chills and no weight loss Eyes: as per Subjective / HPI Ear, Nose, Mouth, Throat: as per Subjective / HPI Respiratory: no dyspnea and no dyspnea on exertion Cardiovascular: no chest pain and no palpitations Gastrointestinal: as per Subjective / HPI Musculoskeletal: no joint pain and no swelling Integumentary: no rash and no lesions Neurologic: no numbness and no paresthesia Psychiatric: no depression and no anxiety Endocrine: no fatigue Hematologic / Lymphatic: no easy bleeding and no easy bruising Physical Exam Constitutional: WD/WN, vitals as above Eyes: EOM intact bilaterally Neck: normal visual inspection Respiratory: normal respiratory effort, lungs clear to auscultation Cardiovascular: RRR, no murmur, no edema Gastrointestinal (Abdomen): Inspection/Auscultation: abdomen normal to inspection; abdomen not distended Percussion/Palpation: abdomen soft; abdomen nontender and no hepatosplenomegaly Musculoskeletal: Extremities: no cyanosis Gait: normal gait Skin: no rashes, warm and dry Neurologic: moves all extremities Psychiatric: A+Ox3, euthymic affect Results & Data ([facility]) Vital Signs (Past 12 Hours) Vital Signs Temp Pulse Pulse Resp BP BP Pulse Ox 11/12/21 13:12 36.8 C 77 16 118/74 11/12/21 08:41 36.8 C 76 16 105/63 96 PG Care Time/CCT Total # of Minutes Spent Total Time Spent with Patient: Total time spent is greater than 50% in coordination of care (as documented) at patient's floor/unit and/or counseling patient: Coding Level of Care Code 18171 Inpt Consult Level 4 Diagnoses Hematochezia K92.1 Anemia D64.9 Anemia type: unspecified type Iron deficiency E61.1 (1) Anemia Anemia type: unspecified type Qualified Code(s): D64.9 - Anemia, unspecified
--- NOTE | 2021-11-12 14:23 | Anesthesiology Consultation ---
Date of Service November 12, 2021 Assessment & Plan (1) Encounter for pre-operative examination: Chart Review Chart Review: entry level accountant initiated History Surgery Operation Date: 11/13/21 11:00 Proposed Procedures p Colonoscopy, Push Enteroscopy - Mack Tan MD Height/Weight Height: 5 ft 2 in Weight: 95.4 kg Allergies Allergy/AdvReac Type Severity Reaction Status Date / Time No Known Allergies Allergy Verified 11/11/21 20:26 Medications Home Medications Medication Instructions Recorded Confirmed Last Taken omeprazole magnesium 20 mg 20 mg PO QAM 05/29/19 11/11/21 11/11/21 07:00 tablet,delayed release escitalopram oxalate 20 mg tablet 20 mg PO QAM 08/12/21 11/11/21 11/11/21 07:00 Active Medications Generic Name Dose Route Start Last Admin Trade Name Freq PRN Reason Stop Dose Admin Escitalopram Oxalate 20 mg 11/12/21 09:00 11/12/21 08:12 Escitalopram Oxalate 20 Mg Tab PO 12/12/21 08:59 20 mg QAM WILLA Administration Lactated Ringer's 1,000 mls @ 80 mls/hr 11/11/21 22:33 11/12/21 13:08 Lr IV 12/11/21 22:32 0 mls/hr .[id number] WILLA Infusion Pantoprazole Sodium 40 mg 11/12/21 09:00 11/12/21 08:12 Pantoprazole 40 Mg Tab PO 12/12/21 08:59 40 mg QAM WILLA Administration Past Medical History Medical History Anxiety GERD (gastroesophageal reflux disease) Iron deficiency anemia Past Family History Family History Mother Hypertension Father Hypertension Dementia Aunt Breast cancer Paternal Aunt Grandmother (Paternal) Myocardial infarction Coronary heart disease Denies family history of Ovarian cancer Prostate cancer Colorectal cancer Past Surgical History Surgical History Status post section Status post tubal ligation Social History Smoking Status: Never smoker Hx Alcohol Use: No Alcohol type: wine alcohol intake frequency: holidays/special occasions only Hx Substance Use: No substance use type: does not use Physical Exam Vital Signs Last Vital Signs Temp 98.2 F 11/12/21 13:44 Pulse 73 11/12/21 13:44 Resp 16 11/12/21 13:44 BP 111/74 11/12/21 13:44 Pulse Ox 95 11/12/21 13:44 Testing Laboratory Results 11/12/21 12:12 11/11/21 19:35 PT 9.8 Seconds (9.0-12.0) 11/11/21 19:35 INR 1.0 (0.9-1.1) 11/11/21 19:35 APTT 26.5 Seconds (21.0-31.0) 11/11/21 19:35 Blood Type O Positive 11/11/21 19:35 Antibody Screen NEGATIVE 11/11/21 19:35 Laboratory Tests 11/11/21 20:50 SARS-CoV-2, RNA, NAAT NEGATIVE Electrocardiogram Date: 11/11/21 Normal sinus rhythm, rate 89 bpm Normal ECG When compared with ECG of 22-JUL-2021 16:31, No significant change was found Confirmed by Thai Munoz ([id number]) on 11/12/2021 9:38:17 AM
[2021-11-12] MEDS ORDERED: LAVAGE SOLUTION 4000ML PO SCH (18:00)
[2021-11-12 21:25] LABS: Hematocrit (blood only) 32.8 % (37-47); Hemoglobin 10.4 g/dL (12.0-16.0); Mean Corpuscular Hemoglobin 28.3 pg (25-34); Mean Corpuscular Hgb Conc 31.7 g/dL (32-36); Mean Corpuscular Volume 89.1 fL (80-100); Mean Platelet Volume 8.6 fL (7.4-10.4); Platelet Count 374 K/uL (130-400); RDW Coefficient of Variation 14.2 % (11.5-14.5); Red Blood Count 3.68 M/uL (4.2-5.4); White Blood Count 9.43 K/uL (4.8-10.8)
[2021-11-13 07:58] LABS: Hematocrit (blood only) 31.6 % (37-47); Mean Corpuscular Hemoglobin 28.1 pg (25-34); Mean Corpuscular Hgb Conc 31.6 g/dL (32-36); Mean Corpuscular Volume 88.8 fL (80-100); Mean Platelet Volume 8.5 fL (7.4-10.4); Platelet Count 342 K/uL (130-400); RDW Coefficient of Variation 14.6 % (11.5-14.5); RDW Standard Deviation 47.9 fL (36.4-46.3); Red Blood Count 3.56 M/uL (4.2-5.4)
[2021-11-13 08:21] LABS: BUN Creatinine Ratio 13.3 (10-20); Creatinine Clr Calc Pharmacy 111.4 ml/min; Est GFR (African American) 117.3 ml/min; Est GFR (Non-African American) 101.2 ml/min; Potassium 3.7 mmol/L (3.5-5.1)
[2021-11-13] MEDS: LACTATED RINGER'S 1,000 ML IV SCH (08:31)
[2021-11-13] MEDS: ESCITALOPRAM OXALATE 20 MG TAB PO SCH ×2 (09:00→14:28)
[2021-11-13] MEDS: PANTOprazole 40 MG TAB PO SCH ×2 (09:00→14:28)
--- NOTE | 2021-11-13 11:39 | History & Physical Bridge Note ---
Date of Service November 13, 2021 History & Physical Bridge Note I have examined the patient, reviewed the History & Physical and in the interval since the performance of the History & Physical I have noted the following changes of clinical significance: no changes noted Proceed with push enteroscopy proceed with colonoscopy. risks/benefits and procedure discussed with patient, who agrees to proceed
[2021-11-13] MEDS: IRON SUCROSE 300 MG in SODIUM CHLORIDE 0.9% 250 ML IV SCH (11:50)
[2021-11-13] MEDS ORDERED: fentaNYL citrate 100 MCG/2 ML VIAL ONE (12:34)
[2021-11-13] MEDS ORDERED: PROPOFOL IV EMULSION 10 MG/ML 20 ML VIAL IV ONE ×2 (12:34→13:08)
[2021-11-13] MEDS ORDERED: SUCCINYLCHOLINE CHLORIDE 20 MG/ML 10 ML VIAL IV ONE (12:34)
[2021-11-13] MEDS ORDERED: ePHEDrine sulfate 50 MG/ML AMP IV PRN (12:40)
[2021-11-13] MEDS ORDERED: ATROPINE SULFATE 0.1 MG/ML 10ML SYR IV PRN (12:40)
[2021-11-13] MEDS ORDERED: fentaNYL citrate 100 MCG/2 ML VIAL IV PRN (12:40)
[2021-11-13] MEDS ORDERED: ONDANSETRON INJ 2 MG/ML 2 ML VIAL IV PRN (12:40)
[2021-11-13] MEDS ORDERED: LIDOCAINE 2% 2 ML VIAL/AMP(20MG/ML) INFIL ONE (13:08)
--- NOTE | 2021-11-13 13:31 | GI REPORT ---
Patient Name: Karne Chavez Procedure Date: 11/13/2021 12:16 PM Date of : 1965 Admit Type: Inpatient Age: 55 Gender: Female Attending MD: Mack Tan MD Procedure: Small bowel enteroscopy Providers: Mack Tan MD Referring MD: Ken Ferrari Indications: Hematochezia Medicines: Monitored Anesthesia Care Complications: No immediate complications. Estimated blood loss: None. Estimated Blood Loss: Estimated blood loss: none. Procedure: Pre-Anesthesia Assessment: - Prior Anticoagulants: The patient has taken no previous anticoagulant or antiplatelet agents. - ASA Grade Assessment: II - A patient with mild systemic disease. After obtaining informed consent, the endoscope was passed under direct vision. Throughout the procedure, the patient's blood pressure, pulse, and oxygen saturations were monitored continuously. The Colonoscope was introduced through the mouth, and advanced to the fourth part of duodenum. After obtaining informed consent, the endoscope was passed under direct vision. Throughout the procedure, the patient's blood pressure, pulse, and oxygen saturations were monitored continuously.The small bowel enteroscopy was accomplished without difficulty. The patient tolerated the procedure well. Findings: A medium-sized hiatal hernia was present. The entire examined stomach was normal. There was no evidence of significant pathology in the duodenal bulb, in the second portion of the duodenum, in the third portion of the duodenum and in the fourth portion of the duodenum. No evidence of blood throughout entire exam. Impression: - Medium-sized hiatal hernia. - Normal stomach. - Normal duodenal bulb, second portion of the duodenum, third portion of the duodenum and fourth portion of the duodenum. - No specimens collected. Recommendation: - Return patient to [facility] for ongoing care. - Advance diet as tolerated today. Mack Tan MD 11/13/2021 1:30:46 PM This report has been signed electronically. Note Initiated On: 11/13/2021 12:16 PM Number of Addenda: 0 I attest to the content of the Intraoperative Record and orders documented therein, exceptions below {[id number]}
--- NOTE | 2021-11-13 13:34 | GI REPORT ---
Patient Name: Karen Chavez Procedure Date: 11/13/2021 12:15 PM Date of : 1965 Admit Type: Inpatient Age: 55 Gender: Female Attending MD: Mack Tan MD Procedure: Colonoscopy Providers: Mack Tan MD Referring MD: Ken Ferrari Indications: Hematochezia Medicines: Monitored Anesthesia Care Complications: No immediate complications. Estimated blood loss: None. Estimated Blood Loss: Estimated blood loss: none. Procedure: Pre-Anesthesia Assessment: - Prior Anticoagulants: The patient has taken no previous anticoagulant or antiplatelet agents. - ASA Grade Assessment: II - A patient with mild systemic disease. After I obtained informed consent, the scope was passed under direct vision. Throughout the procedure, the patient's blood pressure, pulse, and oxygen saturations were monitored continuously. The Colonoscope was introduced through the anus and advanced to the cecum, identified by appendiceal orifice and ileocecal valve. The colonoscopy was performed without difficulty. The patient tolerated the procedure well. The quality of the bowel preparation was fair. Findings: Multiple small and large-mouthed diverticula were found in the sigmoid colon and descending colon along with old blood and a clot at a diverticular opening. There was evidence of past bleeding from the diverticular opening. For hemostasis, one hemostatic clip was successfully placed. There was no bleeding at the end of the procedure. Impression: - Preparation of the colon was fair. - Mild diverticulosis in the sigmoid colon and in the descending colon. There was evidence of past bleeding from the diverticular opening. Clip was placed. - No specimens collected. Recommendation: - Return patient to [facility] for ongoing care. - Advance diet as tolerated today. -avoid NSAIDS strictly -supportive care Mack Tan MD 11/13/2021 1:33:43 PM This report has been signed electronically. Note Initiated On: 11/13/2021 12:15 PM Number of Addenda: 0 I attest to the content of the Intraoperative Record and orders documented therein, exceptions below {[id number]}
--- NOTE | 2021-11-13 13:35 | Procedure Note ---
Procedure Note Date of Service November 13, 2021 Note GI brief post op note/procedure note push enteroscopy/colonoscopy findings: normal push enteroscopy except for hiatal hernia, old blood and clot in sigmoid colon at diverticula, closed with clip. conclusions: diverticular bleed that has resolved recs: --advance diet as tolerated --avoid NSAIDS Mack Tan MD Gastroenterology Coding
--- NOTE | 2021-11-13 13:45 | Anesthesiology Progress Note ---
Date of Service November 13, 2021 Anesthesia Post Procedure Vital Signs Vital Signs: Temp Pulse Pulse Pulse Resp BP BP 11/13/21 13:40 70 16 11/13/21 13:31 98.4 F 79 16 11/13/21 08:20 97.9 F 76 16 120/73 11/12/21 22:40 97.9 F 72 16 11/12/21 22:33 11/12/21 18:47 98.1 F 87 119/81 11/12/21 18:22 98.1 F 83 16 130/80 11/12/21 17:23 98.1 F 81 16 106/72 11/12/21 16:53 98.1 F 78 16 118/80 11/12/21 16:38 97.9 F 86 16 119/76 11/12/21 16:21 98.1 F 82 16 129/77 11/12/21 15:47 133/76 11/12/21 15:14 97.9 F 97 H 79 16 133/76 108/72 11/12/21 14:50 97.9 F 78 16 105/71 11/12/21 14:14 98.1 F 85 16 111/74 BP Pulse Ox Pulse Ox 11/13/21 13:40 123/70 98 11/13/21 13:31 123/63 97 11/13/21 08:20 98 11/12/21 22:40 139/82 96 11/12/21 22:33 93 11/12/21 18:47 11/12/21 18:22 96 11/12/21 17:23 95 11/12/21 16:53 95 11/12/21 16:38 11/12/21 16:21 11/12/21 15:47 11/12/21 15:14 97 11/12/21 14:50 11/12/21 14:14 Transfer of Care Handoff Completed per policy Notes Mental Status: alert / awake / arousable and participated in evaluation Patient Amnestic to Procedure: Yes Nausea / Vomiting: adequately controlled Pain: adequately controlled Airway Patency, RR, SpO2: stable & adequate BP & HR: stable & adequate Hydration State: stable & adequate Anesthetic Complications: no major complications apparent and Pt Satisfied with anesthetic care
--- NOTE | 2021-11-13 19:25 | Hospitalist Progress Note ---
Date of Service November 13, 2021 Assessment & Plan (1) Diverticular hemorrhage: Plan: s/p colonoscopy today showing signs of old blood in the sigmoid colon. clip placed to a diverticulum. this was the likely cause of #4. appreciate GI assistance. clear liquids now, then full liquids tonight/am, then advance after that . cbc in am for stability. (2) Acute blood loss anemia: Plan: 2nd to #1. s/p 2 units PRBCs this admission. H/H stable today. cbc in am. (3) Iron deficiency anemia: Plan: severe. s/p venofer yesterday, today. 1 additional dose tomorrow. follow Fe studies, CBC as outpatient. 2nd GI bleeding. (4) Hematochezia: Plan: EGD and colonoscopy in July as part of an anemia work-up. EGD was normal. Colonoscopy showed localized inflammation, mild severity characterized by aphthous ulcerations and terminal ileum. Biopsies taken. 6 mm polyp in the cecum was removed. Nonbleeding internal hemorrhoids seen. Diverticulosis noted in sigmoid colon. Colonoscopy today - old blood in sigmoid region, presumed diverticular bleeding. EGD wnl. Bleeding has stopped. H/H stable. (5) Anxiety: Plan: Continue escitalopram 20 mg PO daily (6) GERD (gastroesophageal reflux disease): Plan: Continue PPI (7) Obesity (BMI 30-39.9): Plan: BMI 38 Plan: change OBS to full admission status d/c IV fluids tonight updated hopeful for d/c home tomorrow Admission and Anticipated Discharge Date Admission Date: November 13, 2021 Subjective saw patient post-endoscopies she had just finished her clear liquid tray and did fine with such denies any abd pain or recurrent rectal bleeding we discussed the findings of her 2 endoscopies including the colonoscopy showing sigmoid diverticulosis Review of Systems Review of Systems: gen - feeling good, anxious to go home cv - no chest pain pulm - no dyspnea GI - no N/V Physical Exam Physical Exam: gen - NAD, obese neck - no JVD mouth - MMM heart - RRR, s1 s2, no murmur lungs - CTA b/l abd - soft NT ND BS+ ext - no edema, pulses 2+ b/l Results & Data Results & Data ([facility]) Vital Signs (Past 12 Hours) Vital Signs Temp Pulse Pulse Pulse Resp BP BP 11/13/21 19:02 36.7 C 85 16 114/75 11/13/21 16:08 36.8 C 73 16 112/74 11/13/21 14:59 36.6 C 73 16 121/73 11/13/21 13:50 36.6 C 71 16 130/74 11/13/21 13:40 70 16 123/70 11/13/21 13:31 36.9 C 79 16 123/63 11/13/21 08:20 36.6 C 76 16 120/73 Pulse Ox 11/13/21 19:02 93 11/13/21 16:08 94 11/13/21 14:59 94 11/13/21 13:50 95 11/13/21 13:40 98 11/13/21 13:31 97 11/13/21 08:20 98 Laboratory Results Laboratory Results - last 24 hr 11/13/21 11/13/21 07:25 07:25 WBC 7.60 RBC 3.56 L Hgb 10.0 L Hct 31.6 L MCV 88.8 MCH 28.1 MCHC 31.6 L RDW Std Deviation 47.9 H RDW Coeff of Yane 14.6 H Plt Count 342 MPV 8.5 Sodium 140 Potassium 3.7 Chloride 108 H Carbon Dioxide 27 Anion Gap 5 BUN 8 Creatinine 0.60 Est Cr Clr Drug Dosing 111.4 Est GFR ( Amer) 117.3 Est GFR (Non-Af Amer) 101.2 BUN/Creatinine Ratio 13.3 Glucose 95 Calcium 8.0 L PG Care Time/CCT Total # of Minutes Spent Total Time Spent with Patient: Total time spent is greater than 50% in coordination of care (as documented) at patient's floor/unit and/or counseling patient: Coding Level of Care Code 57448 Subseq Hosp Care Lvl 2 Diagnoses Hematochezia K92.1 Anxiety F41.9 GERD (gastroesophageal reflux disease) K21.9 Iron deficiency anemia D50.9 Acute blood loss anemia D62 Diverticular hemorrhage K57.31 Obesity (BMI 30-39.9) E66.9
[2021-11-14 06:36] LABS: Hematocrit (blood only) 30.8 % (37-47); Hemoglobin 9.7 g/dL (12.0-16.0); Mean Corpuscular Hemoglobin 28.4 pg (25-34); Mean Corpuscular Hgb Conc 31.5 g/dL (32-36); Mean Corpuscular Volume 90.1 fL (80-100); Mean Platelet Volume 8.8 fL (7.4-10.4); Platelet Count 351 K/uL (130-400); RDW Coefficient of Variation 14.5 % (11.5-14.5); RDW Standard Deviation 47.6 fL (36.4-46.3); Red Blood Count 3.42 M/uL (4.2-5.4); White Blood Count 7.67 K/uL (4.8-10.8)
[2021-11-14] MEDS: PANTOprazole 40 MG TAB PO SCH (08:29)
[2021-11-14] MEDS: ESCITALOPRAM OXALATE 20 MG TAB PO SCH (08:29)
--- NOTE | 2021-11-14 10:29 | Gastroenterology Progress Note ---
Date of Service November 14, 2021 Assessment & Plan (1) Diverticular hemorrhage: Plan: -H/H currently stable; can continue to watch while hospitalized -Discussed role of powdered fiber supplementation as an outpatient Admission and Anticipated Discharge Date Admission Date: November 13, 2021 Supervising Physician Co-Signing Physician Notes Agree with BASSEM Treviño as above Patient was discharged prior to my evaluation. Subjective Patient is a 55 yo female with a diverticular bleed. She underwent a colonoscopy & EGD with push enteroscopy on 11/13/21. EGD with push was unremarkable for bleeding, but colonoscopy indicated evidence of a diverticular bleed. Patient denies further rectal bleeding. She denies abdominal pain. No further complaints at this time. Her H/H is 9.7/30.8. Review of Systems Cardiovascular: no chest pain Gastrointestinal: no abdominal pain, no hematemesis and no blood in stools Physical Exam Constitutional: well developed Respiratory: normal respiratory effort Cardiovascular: Rate/Rhythm: regular rate Gastrointestinal (Abdomen): normal bowel sounds, soft, nontender, no hepatosplenomegaly Results & Data Results & Data ([facility]) Vital Signs (Past 12 Hours) Vital Signs Temp Pulse Resp BP Pulse Ox 11/14/21 07:44 36.6 C 76 16 105/70 93 11/14/21 04:17 36.6 C 79 16 102/69 93 11/13/21 22:38 36.6 C 86 16 114/76 95 PG Care Time/CCT Total # of Minutes Spent Total Time Spent with Patient: Total time spent is greater than 50% in coordination of care (as documented) at patient's floor/unit and/or counseling patient: Coding Level of Care Code 51727 Subseq Hosp Care Lvl 3 Diagnoses Diverticular hemorrhage K57.31
--- NOTE | 2021-11-14 11:28 | Discharge Summary ---
Date of Service date of admission - November 11, 2021 date of discharge - November 14, 2021 Admission HPI Per Admitting Provider Patient is a 55-year-old female with past medical history of GERD, anxiety, and anemia who presents to ED with rectal bleeding since 4 PM today. States she is passing large quantities of dark red blood with some clots visualized. Is othereise asymptomatic, no fever/chills, chest pain, palpitations, shortness of rbeath, dizziness, weakness, syncope, abdominal pain, nausea, vomiting, hematuria, constipation, or diarrhea. Patient has had intermittent rectal bleeding for several months now with extensive evaluation, see below for details. Patient initially began work-up for iron deficiency anemia and June, when she was found to be severely anemic on routine outpatient blood work. She was admitted on 07/22 and received 3 units of PRBC for Hemoglobin of 6.0, hemoglobin came up appropriate, >9.0, gave a dose of Venofer 200mg IV, tolerated well. She was discharged the following day with set up for 4 more doses of Venofer 200mg IV and ferrous sulfate 325mg BID as well, with follow up with Dr. Montalvo, hematology. Patient recently had a tagged RBC scan yesterday which was unrevealing, as well as EGD and colonoscopy in July as part of an anemia work-up. EGD was normal. Colonoscopy showed localized inflammation, mild severity characterized by aphthous ulcerations and terminal ileum. Biopsies taken. 6 mm polyp in the cecum was removed. Nonbleeding internal hemorrhoids seen. Diverticulosis noted in sigmoid colon. A capsule endoscopy was going to be ordered for today, however cancelled due to patient being en route to the ED. Hgb 9.4 today, down from 11.6 from outpatient labs yesterday. Heme-occult positive. All other labs wnl. Type and screeb obtained, will obtain consent for transfusion and monitor H/H. Principal Diagnosis 1. Rectal bleeding 2nd to diverticular disease 2. Acute blood loss anemia Discharge Exam gen - NAD, obese neck - no JVD mouth - MMM heart - RRR, s1 s2, no murmur lungs - CTA b/l abd - soft NT ND BS+ ext - no edema, pulses 2+ b/l skin - mild pallor Discharge Data Allergies Allergy/AdvReac Type Severity Reaction Status Date / Time No Known Allergies Allergy Verified 11/11/21 20:26 [place]ations [facility] [place] Procedures Performed Operation Date: 11/13/21 11:00 Actual Procedures Esophagogastroduodenoscopy, Colonoscopy, Sigmoid Endoclip Placement, Push Enteroscopy - Mack Tan MD * EGD - moderate sized hiatal hernia, otherwise normal * Colonoscopy - Mild diverticulosis in the sigmoid colon and in the descending colon. There was evidence of past bleeding from the diverticular opening. Clip was placed. PRBCs x 2 units Hospital Course (1) Diverticular hemorrhage: s/p colonoscopy 11/13/[address] Mack Tan. This demonstrated signs of old blood in the sigmoid colon. Clip placed to a diverticulum. Resumed on a clear liquid diet post-endoscopy, then advanced as tolerated. Recommend low-fiber diet for about 1 week post-discharge. Following such a dedicated fiber supplement indefinitely was recommended in light of her diverticular disease. Discharge hemoglobin = 9.7. (2) Acute blood loss anemia: 2nd to #1. s/p 2 units PRBCs this admission. s/p 3 infusions of IV venofer. Lowest Hb was 7.6, improving to 9.7 at discharge. (3) Iron deficiency anemia: severe. 2nd to GI blood loss, with acute bleeding due to #1 above. Ferritin = 16. s/p Venofer x 3 doses during the hospitalization. follow Fe studies, CBC as outpatient. (4) Hematochezia: EGD and colonoscopy were performed0 in July 2021 as part of an anemia work-up. EGD was normal. Colonoscopy showed localized inflammation, mild severity characterized by aphthous ulcerations in the terminal ileum. Biopsy did not show IBD. 6 mm polyp in the cecum was removed. Nonbleeding internal hemorrhoids seen. Diverticulosis noted in sigmoid colon. Colonoscopy this admission with old blood in sigmoid region, presumed diverticular bleeding. EGD wnl. Bleeding stopped while here and H/H remained stable after her PRBCs. Dr Russel Montalvo from hematology had previously set her up for a capsule endoscopy. This will be completed in the near-future after discharge. (5) Anxiety: Continue escitalopram 20 mg PO daily (6) GERD (gastroesophageal reflux disease): Continue PPI (7) Obesity (BMI 30-39.9): BMI 39 (8) Hiatal hernia: Continue PPI (9) Vitamin B12 deficiency: Previous B12 level was 326 in fall, 2021. This is low-normal and I advised oral replacement post-discharge. Total Time Total Time Spent Total Time Spent (In Minutes): 40 Discharge Plan Discharge Items Patient Disposition: Home - Self-Care Reason For Visit: RECTAL BLEED Discharge Diagnosis: 1. Rectal bleeding due to diverticulosis of the sigmoid colon 2. Severe iron deficiency anemia due to gastrointestinal bleeding; discharge hemoglobin = 9.7 3. Low-normal vitamin B12 level (B12 level in 2020 = 326) Activity: As commented below Activity Comment: gradually increase your activities over the next week Sexual Activity: Wait until after follow-up appointment Exercise/Sports: Wait until after follow-up appointment Driving/Machine Use: Resume 1 day after discharge Non-emergency contact: Primary Care Provider and Oncologist Call non-emergency contact if: you have any medication questions and your symptoms worsen Follow-up/Referrals: Lisa Henley DO [Primary Care Provider] - 11/21/21 10:45 am (Dr. Trevor Grewal in [place] office.) Russel Montalvo DO [Physician] - 11/28/21 1:50 pm (see Dr Montalvo as scheduled, or in 1 week (if you are unable to see Dr Henley); keep your appointment for your capsule endoscopy) Diet: Low Fiber Addtl Attending Provider Instructions: Mrs Chavez - You were hospitalized at [facility] for rectal bleeding. The bleeding led to a significant drop in your blood counts (hemoglobin) which prompted the need for blood transfusion. You received 2 units of blood, and 3 rounds of intravenous iron supplementation. The bleeding ultimately stopped, and your hemoglobin on day of discharge is 9.7. Dr Tan from [facility] saw you in consult and recommended both an upper endoscopy (EGD) and lower endoscopy (colonoscopy). The EGD was normal with no signs of any bleeding. The colonoscopy showed the presence of old blood in your sigmoid colon. Specifically, there were diverticular pockets that had old blood present. Thus, you likely had rectal bleeding from diverticulosis. The diverticulosis was present in your left colon (descending colon) and your sigmoid colon. Dr Tan placed a clip over the suspected bleeding site to prevent re-bleeding. Recommendations - 1. if you were taking oral, wihw-cxa-ecrdyuc iron you can stop it at this time. 2. please follow a LOW FIBER diet for 7 days. Please see handout. 3. after 7 days you can return to a normal diet. 4. also after 7 days please start taking an yvni-vql-zwmmmyn fiber supplement such as Metamucil. Take 1 serving daily. Fiber supplementation will reduce the chances of developing more diverticular disease. Again you can start the fiber supplement in about 7-10 days. 5. since your vitamin B12 level was low-normal in the recent past please take wjdl-ale-yfnekba vitamin B12 1000mcg (1mg) daily for 6-[address] Montalvo or Dr Henley recheck your CBC blood count within the next week. 7. ok to take vsdb-wli-ujhvgbh tylenol for aches/pains. 8. for 7-10 days please avoid aspirin, motrin, ibuprofen, advil, alleve, naprosyn, goodie powders, etc. Theoretically anti-inflammatory pills can increase the chances of bleeding. 9. keep any scheduled appointment for your capsule endoscopy. Follow-up - see separate section Return to [facility] if - * you see bright red blood again in your stools * you develop abdominal pain * you develop significant dizziness or lightheadedness * you have chest pains or shortness of breath * you see black, tarry stools * any other concerns It was our pleasure to care for you at [facility]! -Dr Ferrari Pending Studies at Discharge: No Stand-Alone Forms: My [facility], Smoking Cessation Medications and DC Order Prescriptions: New cyanocobalamin (vitamin B-12) 1,000 mcg capsule 1,000 mcg PO DAILY Qty: 90 RF: 3 Continued omeprazole magnesium 20 mg tablet,delayed release (DR/EC) 20 mg PO QAM RF: 0 escitalopram oxalate 20 mg tablet 20 mg PO QAM RF: 0 Discharge Orders: Discharge Order (Routine); Ordered 11/14/21 Ordered By: Ken Carr/Other Patient Handouts: Low-Fiber Diet, Diverticulosis and Diverticulitis, ED Anemia, Iron-Deficiency (Adult) Admission Data Admit Date/Time: 11/11/21 21:22 Attending Provider: Ken Ferrari Admit Provider: Cristian De La Garza Primary Care Provider: Lisa Henley Other Providers: Cristian De La Garza ; Mack aTn Other Interventions: Discharge Summary Assessment (RN) Last Done: 11/14/21 14:18 Coding Level of Care Code D/C DAY MANAGEMENT >30 MINS Diagnoses Diverticular hemorrhage K57.31 Acute blood loss anemia D62 Iron deficiency anemia D50.9 Hematochezia K92.1 Anxiety F41.9 GERD (gastroesophageal reflux disease) K21.9 Obesity (BMI 30-39.9) E66.9 Hiatal hernia K44.9 Vitamin B12 deficiency E53.8
[2021-11-14] MEDS: IRON SUCROSE 300 MG in SODIUM CHLORIDE 0.9% 250 ML IV SCH (11:58)
== END 2021-11-14 14:42 | disposition home or self-care (01) | DRG 378 ==
LOC: ED 17:49 → 3N 17:49 → SUATTDRO 21:22 → 3N 22:25